=== PATIENT | male | born 1985 | race Caucasian/White ===

== ENCOUNTER → 2017-02-12 | Outpatient (REF) | payer OTHER | LOC: M SMT 13:46 | PROVIDERS: ATTEND Urology | DX: Z30.2 Encounter for sterilization (principal) ==

== ENCOUNTER → 2017-04-11 | Outpatient (REF) | payer OTHER ==
[2017-04-11 20:24] LABS: IMMMOTILE SPERM CENTRIFUGED PRESENT (ABSENT); IMMOTILE SPERM PRESENT (ABSENT); MOTILE SPERM PRESENT (ABSENT); MOTILE SPERM CENTRIFUGED PRESENT (ABSENT)
== END ==
LOC: M SMT 10:02
PROVIDERS: ATTEND Urology
DX: Z30.2 Encounter for sterilization (principal)

== ENCOUNTER → 2017-06-13 | Outpatient (REF) | payer OTHER ==
[2017-06-13 12:15] LABS: SEMEN APPEARANCE OPAQUE (OPAQUE); SEMEN VOLUME 0.9 ml (4.0-5.0)
[2017-06-13 12:16] LABS: SEMEN VISCOSITY VISCOUS (LIQUID); SEMEN pH 7.5 (7.0-8.0); SPERM ABNORMAL FORMS WBC'S NOTED; WBC CONCENTRATION >1 M/ml (<=1 M/ml)
[2017-06-13 12:17] LABS: IMMMOTILE SPERM CENTRIFUGED ABSENT (ABSENT); IMMOTILE SPERM ABSENT (ABSENT); MOTILE SPERM ABSENT (ABSENT); MOTILE SPERM CENTRIFUGED ABSENT (ABSENT)
== END ==
LOC: M SMT 10:58
DX: Z98.52 Vasectomy status (principal)

== ENCOUNTER 2018-01-06 02:20 | Emergency (ER) | payer BC, OTHER ==
[2018-01-06] MEDS: TAMSULOSIN 0.4 MG CAP PO (03:45)
[2018-01-06] MEDS: MORPHINE 4 MG/ML 1ML VIAL/SYRINGE (J2270) IV (03:45)
[2018-01-06] MEDS: NS 1,000 ML IV (03:45)
[2018-01-06] MEDS: KETOROLAC 30 MG/ML VIAL (J1885) IV (03:45)
[2018-01-06 04:28] LABS: ANION GAP 8 MEQ/L (8-16); BLOOD UREA NITROGEN 16 MG/DL (7-18); CALCIUM LEVEL 8.9 MG/DL (8.5-10.1); CARBON DIOXIDE LEVEL 26 MEQ/L (21-32); CHLORIDE LEVEL 110 MEQ/L (98-107); GLOMERULAR FILTRATION RATE 58.5 (>60); GLUCOSE, FASTING 113 MG/DL (70-100); POTASSIUM SERUM 4.1 MEQ/L (3.5-5.1); SODIUM LEVEL 144 MEQ/L (136-145)
[2018-01-06 05:54] LABS: APPEARANCE, URINE CLEAR (CLEAR); BACTERIA, URINE AUTO NEGATIVE (NEGATIVE); BILIRUBIN, URINE AUTO NEGATIVE (NEGATIVE); BLOOD, URINE BLOOD NEGATIVE (NEGATIVE); COLOR, URINE YELLOW (YELLOW); GLUCOSE, URINE (UA) AUTO NEGATIVE (NEGATIVE); KETONE, URINE AUTO TRACE mg/dL (NEGATIVE); LEUKOCYTE ESTERASE, URINE AUTO NEGATIVE (NEGATIVE); MUCUS, URINE SMALL (NEGATIVE); NITRITE, URINE AUTO NEGATIVE (NEGATIVE); PROTEIN, URINE AUTO NEGATIVE (NEGATIVE); RBC, URINE AUTO 3 /HPF (0-3); SQUAMOUS EPITHELIAL CELL UR AU 0 /HPF (0-6); UROBILINOGEN, URINE AUTO 0.2 mg/dL (0.0-2.0); WBC, URINE AUTO 1 /HPF (0-3)
== END 2018-01-06 06:13 | disposition home or self-care (01) ==
LOC: M ED 02:20
DX: N20.1 Calculus of ureter (principal); J45.909 Unspecified asthma, uncomplicated
CPT/HCPCS: J2270

== ENCOUNTER → 2018-04-07 | Outpatient (CLI) | payer BC, OTHER | LOC: M WUC 09:13 | DX: R05 Cough (principal) | CPT/HCPCS: 71046 ==

== ENCOUNTER → 2018-06-16 | Outpatient (REF) | payer OTHER ==
[~2018-06-16] MED LIST: MONT10TA2; MULTCAP PO; ZYRTTAB8 PO
[2018-06-16 10:59] LABS: HEMATOCRIT 48.2 % (42.0-52.0); HEMOGLOBIN 16.2 g/dl (13.5-17.5); MEAN CORPUSCULAR HGB CONC 33.6 g/dl (32.0-36.5); MEAN CORPUSCULAR VOLUME 86.2 fl (80.0-96.0); PLATELET COUNT, AUTOMATED 266 10^3/uL (150-450); RED BLOOD COUNT 5.59 10^6/uL (4.30-6.10)
[2018-06-16 11:04] LABS: ALT/SGPT 36 U/L (12-78); BILIRUBIN,TOTAL 0.6 MG/DL (0.2-1.0); BLOOD UREA NITROGEN 18 MG/DL (7-18); CALCIUM LEVEL 9.1 MG/DL (8.5-10.1); CARBON DIOXIDE LEVEL 28 MEQ/L (21-32); CHLORIDE LEVEL 104 MEQ/L (98-107); CHOLESTEROL LEVEL 167 MG/DL (<200); CHOLESTEROL RISK RATIO 4.638 (<5); CREATININE FOR GFR 0.96 MG/DL (0.70-1.30); GLOMERULAR FILTRATION RATE > 60.0 (>60); GLUCOSE, FASTING 85 MG/DL (70-100); HDL CHOLESTEROL 36 MG/DL (>40); LDL CHOLESTEROL 104 MG/DL (<100); NON-HDL-C 131 MG/DL; POTASSIUM SERUM 4.1 MEQ/L (3.5-5.1); SODIUM LEVEL 140 MEQ/L (136-145); TOTAL PROTEIN 6.8 GM/DL (6.4-8.2); TRIGLYCERIDES LEVEL 133 MG/DL (<150)
== END ==
LOC: M SFHCPLAZ 07:46
PROVIDERS: ATTEND Nurse Practitioner Family
DX: Z00.00 Encounter for general adult medical examination without abnormal findings (principal); Z13.220 Encounter for screening for lipoid disorders

== ENCOUNTER 2018-10-06 21:58 | Emergency (ER) | payer BC, OTHER ==
[~2018-10-06] VITALS: Ht 172.7 cm; Wt 102.3 kg
[2018-10-06] MEDS ORDERED: CIPR-249 PO (23:54)
[2018-10-07] MEDS ORDERED: CIPROFLOXACIN 500 MG TAB PO ONE
[2018-10-07 00:01] VITALS: BP 138/82
== END 2018-10-07 00:02 | disposition home or self-care (01) ==
LOC: M ED 21:58
DX: R39.15 Urgency of urination (principal)

== ENCOUNTER → 2018-10-09 | Outpatient (REF) | payer OTHER ==
[~2018-10-09] MED LIST changes: +CIPR-249 PO
== END ==
LOC: M SFHCPLAZ 17:06
PROVIDERS: ATTEND Nurse Practitioner Family
DX: R39.15 Urgency of urination (principal)

== ENCOUNTER → 2018-10-14 | Outpatient (CLI) | payer BC, OTHER ==
--- NOTE | 2018-10-14 14:26 | REP ---
RENAL AND BLADDER ULTRASOUND: Real-time sonographic evaluation of the kidneys performed and demonstrates both kidneys to be normal in size and echotexture, right kidney measuring 11.0 x 5.9 x 5.2 cm and left kidney 10.6 x 5.6 x 5.6 cm. There is no hydronephrosis bilaterally. No definite renal stone is seen. No renal mass is seen. Urinary bladder is mildly distended measuring 3.5 x 5.2 x 3.1 cm for a total volume of 37 mL. Postvoid residual is approximately 8 mL about 22% of the original volume. No bladder mass or calculus is seen. IMPRESSION: No hydronephrosis. No definite renal or bladder calculus. Electronically Signed by Slava Carmona MD 10/15/2018 12:26 P
== END ==
LOC: M RAD 07:08
PROVIDERS: ATTEND Nurse Practitioner Family
DX: R39.15 Urgency of urination (principal)

== ENCOUNTER 2019-01-30 18:33 | Emergency (ER) | payer BC, OTHER ==
[~2019-01-30] VITALS: Ht 172.7 cm; Wt 109.3 kg
[2019-01-30 18:34] VITALS: BP 153/98
[2019-01-30 19:13] LABS: BASO # 0.1 10^3/uL (0.0-0.2); BASO % 0.7 % (0.0-1.0); EOS # 0.3 10^3/uL (0.0-0.5); EOS % 2.8 % (0.0-3.0); HEMATOCRIT 46.4 % (42.0-52.0); HEMOGLOBIN 15.8 g/dl (13.5-17.5); LYMPH # 2.1 10^3/uL (1.5-5.0); LYMPH % 23.9 % (24.0-44.0); MEAN CORPUSCULAR HEMOGLOBIN 30.4 pg (27.0-33.0); MEAN CORPUSCULAR HGB CONC 34.1 g/dl (32.0-36.5); MEAN CORPUSCULAR VOLUME 89.2 fl (80.0-96.0); MONO # 0.7 10^3/uL (0.0-0.8); MONO % 7.4 % (0.0-5.0); NEUTROPHILS # 5.8 10^3/uL (1.5-8.5); NEUTROPHILS % 64.8 % (36.0-66.0); PLATELET COUNT, AUTOMATED 263 10^3/uL (150-450); WHITE BLOOD COUNT 8.9 10^3/uL (4.0-10.0)
[2019-01-30] MEDS ORDERED: KETOROLAC 30 MG/ML VIAL (J1885) IV ONE (19:30)
[2019-01-30 19:42] LABS: ALBUMIN 3.8 GM/DL (3.2-5.2); ALT/SGPT 32 U/L (12-78); BILIRUBIN,DIRECT < 0.1 MG/DL (0.0-0.2); BILIRUBIN,TOTAL 0.4 MG/DL (0.2-1.0); BLOOD UREA NITROGEN 15 MG/DL (7-18); CALCIUM LEVEL 8.9 MG/DL (8.5-10.1); CARBON DIOXIDE LEVEL 28 MEQ/L (21-32); CHLORIDE LEVEL 108 MEQ/L (98-107); CREATININE FOR GFR 1.21 MG/DL (0.70-1.30); GLOMERULAR FILTRATION RATE > 60.0 (>60); GLUCOSE, FASTING 87 MG/DL (70-100); LIPASE 109 U/L (73-393); POTASSIUM SERUM 3.9 MEQ/L (3.5-5.1); SODIUM LEVEL 143 MEQ/L (136-145); TOTAL PROTEIN 6.7 GM/DL (6.4-8.2)
[2019-01-30] MEDS ORDERED: NS 1,000 ML IV ONE (20:00)
[2019-01-30] MEDS ORDERED: TAMSULOSIN 0.4 MG CAP PO ONE (20:00)
--- NOTE | 2019-01-30 20:55 | REPVR ---
EXAM: CT Abdomen and Pelvis Without Contrast EXAM DATE/TIME: 01/30/2019 8:03 PM CLINICAL HISTORY: 33 years old, male; Abdominal pain; Flank; Left; Additional info: L flank pain, HX stones TECHNIQUE: Imaging protocol: Computed tomography of the abdomen and pelvis without contrast. Radiation optimization: All CT scans at this facility use at least one of these dose optimization techniques: automated exposure control; mA and/or kV adjustment per patient size (includes targeted exams where dose is matched to clinical indication); or iterative reconstruction. COMPARISON: CT ABD PELVIS W/O CONTRAST 01/06/2018 3:41 AM FINDINGS: Liver: Normal. No mass. Gallbladder and bile ducts: Normal. No calcified stones. No ductal dilation. Pancreas: Normal. No ductal dilation. Spleen: Normal. No splenomegaly. Adrenals: Normal. No mass. Kidneys and ureters: Multiple bilateral non obstructing renal calculi are demonstrated measuring up to 5 mm in the left kidney. There is a 3 mm. obstructive ureteral calculus located at the left UV junction resulting in mild proximal hydroureteronephrosis. There is minimal perinephric stranding. No urinoma demonstrated. Stomach and bowel: Mild diverticulosis is present in the distal colon. No diverticulitis. Mural stratification in the left colon likely related to incomplete distention. Appendix: No evidence of appendicitis. Intraperitoneal space: Unremarkable. No free air. No significant fluid collection. Vasculature: Unremarkable. No abdominal aortic aneurysm. Lymph nodes: Unremarkable. No enlarged lymph nodes. Bladder: Unremarkable as visualized. Reproductive: The prostate gland demonstrates mild hyperplasia. Bones/joints: Mild central spinal stenosis L3-4, moderate to severe central spinal stenosis L4-5. Soft tissues: Unremarkable. IMPRESSION: 1. Multiple bilateral non obstructing renal calculi are demonstrated measuring up to 5 mm in the left kidney. 2. There is a 3 mm. obstructive ureteral calculus located at the left UV junction resulting in mild proximal hydroureteronephrosis. 3. Mild prostatic hyperplasia. 4. Mild diverticulosis is present in the distal colon. No diverticulitis. Electronically signed by: Priyank Valdovinos On 01/30/2019 20:54:50 PM
[2019-01-30] MEDS ORDERED: FLOM0.4C39 PO (21:13)
[2019-01-30] MEDS ORDERED: KETO10TAB PO (21:13)
[2019-01-30] MEDS ORDERED: KETOROLAC TROMETHAMINE 10 MG TAB PO ONE (21:30)
[2019-02-17] MEDS ORDERED: FIBE625T PO (08:44)
[2019-02-17] MEDS ORDERED: SING10TA32 PO (08:44)
== END 2019-01-30 21:38 | disposition home or self-care (01) ==
LOC: M ED 18:33
DX: N20.1 Calculus of ureter (principal); Z87.442 Personal history of urinary calculi
CPT/HCPCS: 74176; 80048; 80076; 81001; 83690; 85025; 96361; 96374; 99284; J1885

== ENCOUNTER → 2019-02-03 | Outpatient (REF) | payer OTHER ==
[~2019-02-03] MED LIST changes: +FLOM0.4C39 PO; +KETO10TAB PO
[2019-02-11 00:07] LABS: Ca Ox Monohydrate 82 % (.)
== END ==
LOC: M SMT 13:16
PROVIDERS: ATTEND Nurse Practitioner Family
DX: N20.0 Calculus of kidney (principal)

== ENCOUNTER → 2019-02-04 | Outpatient (CLI) | payer BC, OTHER ==
--- NOTE | 2019-02-04 17:08 | REP ---
Supine abdomen, two views Indication: Kidney stone. Comparison: CT abdomen pelvis of 01/30/2019. Findings: There is a similar 3 mm calculus within the lower pole left kidney. No right renal calculus is identified. No urinary bladder or ureteral calculus is identified. No calcification to correspond to previously described on left UVJ obstructing calculus, presumably passed. Overlying bowel gas within normal limits. Osseous structures are intact. Impression: No calcification to correspond to previously described on left UVJ obstructing calculus, presumably passed. Similar 3 mm calculus within the left renal lower pole. No new calculus identified. Electronically Signed by Karen Swan MD 02/04/2019 04:59 P
== END ==
LOC: M LRY 15:28
PROVIDERS: ATTEND Nurse Practitioner Family
DX: N20.0 Calculus of kidney (principal)

== ENCOUNTER 2019-02-18 06:22 | Day surgery (SDC) | payer BC, OTHER ==
[~2019-02-18] VITALS: Ht 172.7 cm; Wt 105.7 kg
[~2019-02-18 06:22] MED LIST changes: +FIBE625T PO; +LIDOCAINE 1% MDV 20ML VIAL SQ PRN; +LR 1,000 ML IV ONE; +SING10TA32 PO; +ceFAZolin SOD 2 GM in IV 1 EA IV ONE
--- NOTE | 2019-02-18 07:00 | REP ---
Clinical: Nephrolithiasis. Technique: Single supine view of the abdomen and pelvis. Comparison: 02/04/2019 Findings: Left lower pole renal calculus measures approximately 3 mm. Small punctate bilateral intrarenal calculi also identified. Visualized bowel gas pattern is nonspecific. Skeletal structures are intact. Impression: Small intrarenal calculi as noted above similar to prior examination. Electronically Signed by Gary Judge MD 02/18/2019 06:50 A
[2019-02-18] MEDS ORDERED: LIDOCAINE 2% INJ 100 MG/5 ML SDV (FOR ANES.) As Ordered ONE (07:02)
[2019-02-18] MEDS ORDERED: propofoL 200 MG/20 ML VIAL As Ordered ONE (07:02)
[2019-02-18] MEDS ORDERED: ONDANSETRON 4MG/2ML VIAL (J2405) As Ordered ONE (07:30)
[2019-02-18] MEDS ORDERED: MIDAZOLAM INJ 2 MG/2 ML VIAL (J2250) As Ordered ONE (07:30)
[2019-02-18] MEDS ORDERED: dexameTHASONE 4 MG/ML 1ML VIAL (J1100) As Ordered ONE (07:30)
[2019-02-18] MEDS ORDERED: fentaNYL 100 MCG/2 ML INJECTION (J3010) As Ordered ONE (07:31)
[2019-02-18] MEDS ORDERED: PERCOCET 5MG/325MG TAB PO PRN (09:30)
[2019-02-18] MEDS ORDERED: LR 1,000 ML IV SCH (09:30)
[2019-02-18] MEDS ORDERED: ONDANSETRON 4MG/2ML VIAL (J2405) IV PRN (09:30)
[2019-02-18 09:40] VITALS: BP 119/73
--- NOTE | 2019-02-18 14:59 | RO ---
DATE OF PROCEDURE: 02/18/2019 PREOPERATIVE DIAGNOSIS: 4-5 mm nonobstructing left renal calculi. POSTOPERATIVE DIAGNOSIS: 4-5 mm nonobstructing left renal calculi. PROCEDURE: Left extracorporeal shock wave lithotripsy (ESWL). SURGEON: Dr. Soledad Junior THAI MASSEUR: ANESTHESIA: Monitored anesthesia care (MAC). FINDINGS: Nice breakup of the stone intraoperatively INDICATIONS FOR PROCEDURE: The patient is a 33-year-old gentleman who came to the emergency room 01/30/2019 with a 3 mm stone at the left ureteropelvic junction (UPJ), which he was able to pass but this was quite painful for him. His CAT scan still showed a 4-5 mm nonobstructing left renal stone, which was well seen on a KUB, and he decided to go ahead with left ESWL. All different options, alternatives and benefits were discussed, and informed consent was obtained in both verbal and written form. DESCRIPTION OF PROCEDURE: The patient came into the operating room and anesthesia was induced. Next, using fluoroscopy the stone was well visualized and then he received a total of 2500 shock waves with a total power level of 20. The patient tolerated the procedure well and was returned to the recovery room in stable condition.
== END 2019-02-18 10:30 | disposition home or self-care (01) ==
LOC: M SDC 06:22
PROVIDERS: ATTEND Specialist
DX: N20.0 Calculus of kidney (principal); F43.10 Post-traumatic stress disorder, unspecified; Z79.899 Other long term (current) drug therapy
CPT/HCPCS: 50590; 74018; J0690; J1100; J2250; J2405; J3010

== ENCOUNTER → 2019-04-01 | Outpatient (CLI) | payer BC, OTHER ==
[~2019-04-01] MED LIST changes: -LIDOCAINE 1% MDV 20ML VIAL SQ PRN; -LR 1,000 ML IV ONE; -ceFAZolin SOD 2 GM in IV 1 EA IV ONE
--- NOTE | 2019-04-01 22:01 | REP ---
Clinical: Kidney stone. Technique: Two supine views of the abdomen and pelvis. Findings: Evaluation is somewhat limited due to overlying fecal material/bowel gas pattern. Punctate 2 mm calculi in the lower pole left kidney again noted. No obvious right renal calcification. No obvious ureteral or bladder calcifications. Impression: Limited examination with suspected few punctate calculi in the lower pole left kidney. Electronically Signed by Gary Judge MD 04/01/2019 09:53 P
== END ==
LOC: M WUC 09:06
PROVIDERS: ATTEND Nurse Practitioner Family
DX: N20.0 Calculus of kidney (principal)

== ENCOUNTER 2019-07-15 07:04 | Day surgery (SDC) | payer BC, OTHER ==
[~2019-07-15] VITALS: Ht 170.2 cm; Wt 106.6 kg
[~2019-07-15 07:04] MED LIST changes: +ALL10TAB29 PO; -MONT10TA2; +MONT10TA4; +NS 1,000 ML IV ONE
[2019-07-15] MEDS ORDERED: LIDOCAINE 2% INJ 100 MG/5 ML SDV (FOR ANES.) As Ordered ONE (07:12)
[2019-07-15] MEDS ORDERED: propofoL 200 MG/20 ML VIAL As Ordered ONE ×3 (07:13→08:09)
--- NOTE | 2019-07-15 08:18 | ROOR ---
Patient Name: Gerry Webster Procedure Date: 07/15/2019 7:53 AM Date of : 1985 Age: 34 Room: [facility] Gender: Male Note Status: Finalized Procedure: Colonoscopy Indications: Hematochezia Providers: Saulo VAZQUEZ MD Referring MD: Ana Anne MD Requesting Provider: Medicines: Monitored Anesthesia Care Complications: No immediate complications. Procedure: Pre-Anesthesia Assessment: - The heart rate, respiratory rate, oxygen saturations, blood pressure, adequacy of pulmonary ventilation, and response to care were monitored throughout the procedure. The Colonoscope was introduced through the anus and advanced to 5 cm into the ileum. The colonoscopy was performed without difficulty. The patient tolerated the procedure well. The quality of the bowel preparation was good. Findings: The perianal and digital rectal examinations were normal. Pertinent negatives include normal sphincter tone, no palpable rectal lesions and no anal lesion or abnormality. Mild sigmoid diverticulosis and small internal hemorrhoids. The exam was otherwise without abnormality on direct and retroflexion views. Impression: The perianal exam and digital rectal examinations were normal. Pertinent negatives include normal sphincter tone, no palpable rectal lesions and no anal abnormality. - Mild sigmoid diverticulosis and small internal hemorrhoids. - The examination was otherwise normal on direct and retroflexion views. - No specimens collected. Recommendation: - Use fiber, for example Citrucel, Fibercon, Konsyl or Metamucil. Saulo Vazquez MD Sauol VAZQUEZ MD 07/15/2019 8:17:46 AM Electronically signed by Saulo VAZQUEZ MD Number of Addenda: 0 Note Initiated On: 07/15/2019 7:53 AM Estimated Blood Loss: Estimated blood loss: none.
[2019-07-15 08:30] VITALS: BP 129/82
== END 2019-07-15 08:40 | disposition home or self-care (01) ==
LOC: M OPP 07:04
PROVIDERS: ATTEND Internal Medicine Gastroenterology
DX: K57.30 Diverticulosis of large intestine without perforation or abscess without bleeding (principal); K64.8 Other hemorrhoids; K92.1 Melena

== ENCOUNTER → 2020-03-27 | Outpatient (CLI) | payer BC, OTHER ==
[~2020-03-27] MED LIST changes: -ALL10TAB29 PO; +CETI-24 PO; -NS 1,000 ML IV ONE
--- NOTE | 2020-03-27 12:25 | REP ---
INDICATION: KIDNEY STONE. COMPARISON: April 01, 2019. Comparison CT study January 30, 2019.. TECHNIQUE: Two supine views the abdomen are presented. FINDINGS: Bowel gas pattern is normal. Psoas margins and flank stripes are intact. No pathologic calcification is appreciated. IMPRESSION: No urinary tract calculus seen radiographically.. Negative KUB. <Electronically signed by Pete Darden > 03/27/20 [id number]
== END ==
LOC: M WUC 10:39
PROVIDERS: ATTEND Nurse Practitioner Women's Health
DX: N20.0 Calculus of kidney (principal)

== ENCOUNTER → 2020-06-12 | Outpatient (REF) | payer OTHER ==
[~2020-06-12] MED LIST changes: +MONT10TA10; -MONT10TA4
[2020-06-12 10:40] LABS: HEMATOCRIT 52.8 % (42.0-52.0); HEMOGLOBIN 17.1 g/dl (13.5-17.5); MEAN CORPUSCULAR HEMOGLOBIN 29.2 pg (27.0-33.0); MEAN CORPUSCULAR HGB CONC 32.4 g/dl (32.0-36.5); MEAN CORPUSCULAR VOLUME 90.3 fl (80.0-96.0); PLATELET COUNT, AUTOMATED 282 10^3/uL (150-450); RED BLOOD COUNT 5.85 10^6/uL (4.30-6.10); WHITE BLOOD COUNT 9.1 10^3/uL (4.0-10.0)
[2020-06-12 11:21] LABS: ALBUMIN 4.1 GM/DL (3.2-5.2); ALT/SGPT 40 U/L (12-78); BILIRUBIN,TOTAL 0.4 MG/DL (0.2-1.0); BLOOD UREA NITROGEN 17 MG/DL (7-18); CALCIUM LEVEL 9.5 MG/DL (8.5-10.1); CARBON DIOXIDE LEVEL 30 MEQ/L (21-32); CHLORIDE LEVEL 104 MEQ/L (98-107); CHOLESTEROL LEVEL 184 MG/DL (<200); CHOLESTEROL RISK RATIO 5.575 (<5); CREATININE FOR GFR 1.08 MG/DL (0.70-1.30); FREE T4 1.14 NG/DL (0.76-1.46); GLOMERULAR FILTRATION RATE > 60.0 (>60); GLUCOSE, FASTING 100 MG/DL (70-100); HDL CHOLESTEROL 33 MG/DL (>40); LDL CHOLESTEROL 106 MG/DL (<100); NON-HDL-C 151 MG/DL; POTASSIUM SERUM 4.4 MEQ/L (3.5-5.1); SODIUM LEVEL 140 MEQ/L (136-145); TRIGLYCERIDES LEVEL 224 MG/DL (<150)
== END ==
LOC: M SFHCPLAZ 08:58
PROVIDERS: ATTEND Physician Assistant
DX: K21.9 Gastro-esophageal reflux disease without esophagitis (principal); Z00.00 Encounter for general adult medical examination without abnormal findings; Z13.29 Encounter for screening for other suspected endocrine disorder; Z13.220 Encounter for screening for lipoid disorders

== ENCOUNTER 2021-03-19 23:55 | Emergency (ER) | payer OTHER ==
[~2021-03-19] VITALS: Ht 172.7 cm; Wt 115.0 kg
--- OUTSIDE RECORDS SUMMARY | 2021-03-20 00:04 | CCD ---
Author Author [facility] Organization [facility] Address Unknown Phone Unavailable Care Team Providers Care Awning Hanger Name Role Phone Bri Varghese Unavailable PROBLEMS Type Condition ICD9-CM Code [id number] Code Onset Dates Condition S tatus W/U Status Risk SNOMED Code Notes Problem Kidney stone N20.0 Active confirmed 9228180 7 Problem Gastroesophageal reflux disease without esophagitis K21.9 Active confirmed 882288171 Problem Vasectomy status Z98.52 Active confirmed 161 [id number] Problem Chronic sinusitis, unspecified location J32.9 Active confirmed 73624676 Problem BMI 34.0-34.9,adult Z68.34 Active confirmed 138323638 Problem Urinary urgency R39.15 Active confirmed 7501 8002 ALLERGIES Allergen (clinical drug ingredient) Drug/Non Drug Allergy do cumented on EMR Reaction Allergy Type Onset Date Status SEASONAL ALLERGIES NASAL, RUNNY NOSE, EYES Non Drug Allerg y Active ENCOUNTERS from 1987 to 2021-02-14 Encounter Location Date Provider Diagnosis [address] [phone] [place] [address] Jan, Bri Varghese IMMUNIZATIONS Vaccine Route Administration Date Status TDAP 0.5mL (Boostrix) IM Intramuscular October 15, 2017 Administe red Influenza 6mo & up Fluzone IM Intramuscular Jun 16, 2018 Admi nistered SOCIAL HISTORY Tobacco Use: Social History Observation Description Date Details (start date - stop date) Never Smoker Sex Assigned At : Social History Observation Description Sex Assigned At Unknown Education: Question Answer Notes Level of Education: College [employer] Question Answer Notes Total Score: 2 Interpretation: Alcohol Education 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 Yes with Women only Use protection? No Drug and Alcohol Question Answer Notes Total Score: 0 Interpretation: No problems reported Alcohol Screening: Question Answer Notes Did you have a drink containing alcohol in the past year? Ye s Points 3 Interpretation Negative How often did you have six or more drinks on one occas ion in the past year? Less than monthly (1 point) How many drinks did you have on a typica l day when you were drinking in the past year? 3 or 4 (1 point) How often did you have a drink containing alcohol in t he past year? Monthly or less (1 point) Tobacco Use: Question Answer Notes Are you a: never smoker REASON FOR REFERRAL No Information VITAL SIGNS No information MEDICATIONS Medication SIG (Take, Route, Frequency, Duration) Notes Start Da te End Date Status Singulair 10MG 1 tablet in the evening Orally Once a day for 30 days Active Ketoconazole 2 % 1 application to around anus Externally bid for 14 day(s) Dec, Not-Taking Fiber Not-Taking Cetirizine HCl 10MG TAKE ONE TABLET BY MOUTH ONC E DAILY Orally Once a day for 30 Days Active Probiotic - Orally Not-Taking Multi For Him 1 tab Orally Daily Act igor Proctofoam HC 1-1 % 1 application to affected ar ea Rectal Three times a day for 30 day(s) Dec, Not-Taking PROCEDURES No Information RESULTS No Results REASON FOR VISIT allergy meds MEDICAL (GENERAL) HISTORY Type Description Date Medical History Kidney stones Medical History Seasonal allergies Surgical History wisdom teeth extract Surgical History vasectomy 02/12/17 Surgical History colonoscopy 06/2019 Surgical History Lithotripsy 02/2019 Goals Section No Information Health Concerns No Information MEDICAL EQUIPMENT No Information MENTAL STATUS No Information FUNCTIONAL STATUS No Information ASSESSMENTS No Information PLAN OF TREATMENT Medication Medication Name Sig Start Date Stop Date Cetirizine HCl 10MG TAKE ONE TABLET BY MOUTH ONC E DAILY Orally Once a day for 30 Days Singulair 10MG 1 tablet in the evening Orally Once a day for 30 days Next Appt Details Provider Name:Aishwarya Garland, 3 10:45:00 AM, [id number], , [place], [address], Provider Name:Fiordaliza Mckee, 06-15 10:15:00 AM, [address] [facility], , [place], [address], Insurance Providers Payer Name Payer Address Payer Phone Insured Name Patient Relati onship to Insured Coverage Start Date Coverage End Date [facility] [address] [facility] [id number] JUAN RUIZ self
--- OUTSIDE RECORDS SUMMARY | 2021-03-20 00:04 | CCD ---
Author Author [facility] Organization [facility] Address Unknown Phone Unavailable Care Team Providers Care Bisque Grader Name Role Phone MICHELLE ASH Unavailable Unavailable Khadra SABA MD Unavailable Unavailable Khadra SABA MD Unavailable Unavailable Khadra SABA MD Unavailable Unavailable Khadra SABA MD Unavailable Unavailable Khadra SABA MD Unavailable Unavailable Khadra SABA MD Unavailable Unavailable Khadra SABA MD Unavailable Unavailable Khadra SABA MD Unavailable Unavailable Khadra SABA MD Unavailable Unavailable Khadra SABA MD Unavailable Unavailable Khadra SABA MD Unavailable Unavailable Khadra SABA MD Unavailable Unavailable Khadra SABA MD Unavailable Unavailable Khadra SABA MD Unavailable Unavailable Khadra SABA MD Unavailable Unavailable Khadra SABA MD Unavailable Unavailable Khadra SABA MD Unavailable Unavailable Khadra SABA MD Unavailable Unavailable Khadra SABA MD Unavailable Unavailable Khadra SABA MD Unavailable Unavailable Khadra SABA MD Unavailable Unavailable Khadra SABA MD Unavailable Unavailable Khadra SABA MD Unavailable Unavailable Khadra SABA MD Unavailable Unavailable Mariano BRADY PAUL Unavailable Unavailable Smallwood, P Derw PA Unavailable Unavailable Smallwood, P Drew PA Unavailable Unavailable [place]wood, P Drew PA Unavailable Unavailable [place]wood, P Drew PA Unavailable Unavailable Smallwood, P Drew PA Unavailable Unavailable Smallwood, P Drew PA Unavailable Unavailable Smallwood, P Drew PA Unavailable Unavailable Smallwood, P Drew PA Unavailable Unavailable Smallwood, P Drew PA Unavailable Unavailable Smallwood, P Drew PA Unavailable Unavailable Smallwood, P Drew PA Unavailable Unavailable Smallwood, P Drew PA Unavailable Unavailable Smallwood, P Drew PA Unavailable Unavailable Smallwood, P Drew PA Unavailable Unavailable Smlalwood, P Drew PA Unavailable Unavailable Smallwood, P Drew PA Unavailable Unavailable [place]wood, P Drew PA Unavailable Unavailable [place]wood, P Drew PA Unavailable Unavailable Smallwood, P Drew PA Unavailable Unavailable Smallwood, P Drew PA Unavailable Unavailable Smallwood, P Drew PA Unavailable Unavailable [place]wood, P Drew PA Unavailable Unavailable Smallwood, P Drew PA Unavailable Unavailable Smallwood, P Drew PA Unavailable Unavailable [place]wood, P Drew PA Unavailable Unavailable Smallwood, P Drew PA Unavailable Unavailable Smallwood, P Drew PA Unavailable Unavailable Smallwood, P Drew PA Unavailable Unavailable Smallwood, P Drew PA Unavailable Unavailable Smallwood, P Drew PA Unavailable Unavailable Smallwood, P Drew PA Unavailable Unavailable Smallwood, P Drew PA Unavailable Unavailable [place]wood, P Drew PA Unavailable Unavailable [place]wood, P Drew PA Unavailable Unavailable [place]wood, P Drew PA Unavailable Unavailable [place]wood, P Drew PA Unavailable Unavailable [place]wood, P Drew PA Unavailable Unavailable Smallwood, P Drew PA Unavailable Unavailable Smallwood, P Drew PA Unavailable Unavailable Smallwood, P Drew PA Unavailable Unavailable Smallwood, P Drew PA Unavailable Unavailable Smallwood, P Drew PA Unavailable Unavailable Scuderi, G Elton MONTERO Unavailable Unavailable Scuderi, G Elton MONTERO Unavailable Unavailable Scuderi, G Elton MONTERO Unavailable Unavailable Scuderi, G Elton MONTERO Unavailable Unavailable Scuderi, G Elton MONTERO Unavailable Unavailable Scuderi, G Elton MONTERO Unavailable Unavailable Scuderi, G Elton MONTERO Unavailable Unavailable Scuderi, G Elton MONTERO Unavailable Unavailable Scuderi, G Elton MONTERO Unavailable Unavailable Scuderi, G Elton MONTERO Unavailable Unavailable Scuderi, G Elton MONTERO Unavailable Unavailable Scuderi, G Elton MONTERO Unavailable Unavailable Scuderi, G Elton MONTERO Unavailable Unavailable Scuderi, G Elton MONTERO Unavailable Unavailable Scuderi, G Elton MONTERO Unavailable Unavailable Scuderi, G Elton MONTERO Unavailable Unavailable Scuderi, G Elton MONTERO Unavailable Unavailable Scuderi, G Elton MONTERO Unavailable Unavailable Scuderi, G Elton MONTERO Unavailable Unavailable Scuderi, G Elton MONTERO Unavailable Unavailable Scuderi, G Elton MONTERO Unavailable Unavailable Scuderi, G Elton MONTERO Unavailable Unavailable Scuderi, G Elton MONTERO Unavailable Unavailable Scuderi, G Elton MONTERO Unavailable Unavailable Scuderi, G Elton MONTERO Unavailable Unavailable Scuderi, G Elton MONTERO Unavailable Unavailable Scuderi, G Elton MONTERO Unavailable Unavailable Scuderi, G Elton MONTERO Unavailable Unavailable Scuderi, G Elton MONTERO Unavailable Unavailable Scuderi, G Elton MONTERO Unavailable Unavailable Scuderi, G Elton MONTERO Unavailable Unavailable Scuderi, Cyn Conde MD Unavailable Unavailable Scuderi, G Elton MONTERO Unavailable Unavailable Scuderi, G Elton MONTERO Unavailable Unavailable Scuderi, G Elton MONTERO Unavailable Unavailable Scuderi, G Elton MONTERO Unavailable Unavailable Scuderi, G Elton MONTERO Unavailable Unavailable Scuderi, G Elton MONTERO Unavailable Unavailable Scuderi, G Elton MONTERO Unavailable Unavailable Scuderi, G Elton MONTERO Unavailable Unavailable Scuderi, G Elton MONTERO Unavailable Unavailable Scuderi, Cyn Conde MD Unavailable Unavailable Scuderi, G Elton MONTERO Unavailable Unavailable Scuderi, Cyn Conde MD Unavailable Unavailable Scuderi, G Elton MONTERO Unavailable Unavailable Scuderi, G Elton MONTERO Unavailable Unavailable Scuderi, G Elton MONTERO Unavailable Unavailable Scuderi, G Elton MONTERO Unavailable Unavailable Scuderi, G Elton MONTERO Unavailable Unavailable Scuderi, G Elton MONTERO Unavailable Unavailable Scuderi, G Elton MONTERO Unavailable Unavailable Scuderi, G Elton MONTERO Unavailable Unavailable Scuderi, G Elton MONTERO Unavailable Unavailable Scuderi, G Elton MONTERO Unavailable Unavailable Scuderi, G Elton MONTERO Unavailable Unavailable Scuderi, G Elton MONTERO Unavailable Unavailable Scuderi, G Elton MONTERO Unavailable Unavailable Scuderi, G Elton MONTERO Unavailable Unavailable Scuderi, G Elton MONTERO Unavailable Unavailable Scuderi, G Elton MONTERO Unavailable Unavailable Scuderi, G Elton MONTERO Unavailable Unavailable Scuderi, G Elton MONTERO Unavailable Unavailable Scuderi, G Elton MONTERO Unavailable Unavailable Scuderi, G Elton MONTERO Unavailable Unavailable Scuderi, G Elton MONTERO Unavailable Unavailable Scuderi, G Eltno MONTERO Unavailable Unavailable Scuderi, G Elton MONTERO Unavailable Unavailable Scuderi, G Elton MONTERO Unavailable Unavailable Scuderi, G Elton MONTERO Unavailable Unavailable Scuderi, G Elton MONTERO Unavailable Unavailable Scuderi, G Elton MONTERO Unavailable Unavailable Scuderi, G Elton MONTERO Unavailable Unavailable Scuderi, G Elton MONTERO Unavailable Unavailable Scuderi, G Elton MONTERO Unavailable Unavailable Scuderi, G Elton MONTERO Unavailable Unavailable Jerrica MONTERO, P Paul Unavailable + Jerrica MONTERO, P Paul Unavailable Jerrica MONTERO, P Paul Unavailable Jerrica MONTERO, P Paul Unavailable + Jerrica MONTERO, P Paul Unavailable + Jerrica MONTERO, P Paul Unavailable + Jerrica MONTERO, P Paul Unavailable + Jerrica MONTERO, P Paul Unavailable + Jerrica MONTERO, P Paul Unavailable + Jerrica MONTERO, P Paul Unavailable + Jerrica MONTERO, P Paul Unavailable + Jerrica MONTERO, P Pual Unavailable + Jerrica MONTERO, P Paul Unavailable + Jerrica MONTERO, P Paul Unavailable + Jerrica MONTERO, P Paul Unavailable + Jerrica MONTERO, P Paul Unavailable + Jerrica MONTERO, P Paul Unavailable + Jerrica MONTERO, P Paul Unavailable + Jerrica MONTERO, P Paul Unavailable + Jerrica MONTERO, P Paul Unavailable + Jerrica MONTERO, P Paul Unavailable + Jerrica MONTERO, P Paul Unavailable + Jerrica MONTERO, P Paul Unavailable + Jerrica MONTERO, P Paul Unavailable + Jerrica MONTERO, P Paul Unavailable + Jerrica MONTERO, P Paul Unavailable + Jerrica MONTERO, P Paul Unavailable + Jerrica MONTERO, P Paul Unavailable + Jerrica MONTERO, P Paul Unavailable + Jerrica MONTERO, P Paul Unavailable + Jerrica MONTERO, P Paul Unavailable + Jerrica MONTERO, P Paul Unavailable + Jerrica MONTERO, P Paul Unavailable + Jerrica MONTERO, P Paul Unavailable + Jerrica MONTERO, P Paul Unavailable + Jerrica MONTERO, P Paul Unavailable + Jerrica MONTERO, P Paul Unavailable + Jerrica MONTERO, P Paul Unavailable + Jerrica MONTERO, P Paul Unavailable + Jerrica MONTERO, P Paul Unavailable + Jerrica MONTERO, P Paul Unavailable + Jerrica MONTERO, P Paul Unavailable + Jerrica MONTERO, P Paul Unavailable + Jerrica MONTERO, P Paul Unavailable + Jerrica MONTERO, P Paul Unavailable + Jerrica MONTERO, P Paul Unavailable + Jerrica MONTERO, P Paul Unavailable + Jerrica MONTERO, P Paul Unavailable + Jerrica MONTERO, P Paul Unavailable + Jerrica MONTERO, P Paul Unavailable + Jerrica MONTERO, P Paul Unavailable + Jerrica MONTERO, P Paul Unavailable + Jerrica MONTERO, P Paul Unavailable + Jerrica MONTERO, P Paul Unavailable + Jerrica MONTERO, P Paul Unavailable + Jerrica MONTERO, P Paul Unavailable + Jerrica MONTERO, P Paul Unavailable + Jerrica MONTERO, P Paul Unavailable + Jerrica MONTERO, P Paul Unavailable + Jerrica MONTERO, P Paul Unavailable + Jerrica MONTERO, P Paul Unavailable + Jerrica MONTERO, P Paul Unavailable + Jerrica MONTERO, P Paul Unavailable + Jerrica MONTERO, P Paul Unavailable + Jerrica MONTERO, P Paul Unavailable + Jerrica MONTERO, P Paul Unavailable Nilsa, Destonie Unavailable Nilsa, Destonie Unavailable RACHAEL GUERRA MD Unavailable Unavailable GUERRARACHAEL PEREZ MD Unavailable Unavailable GUERRARACHAEL MD Unavailable Unavailable GUERRA, RACHAEL MILLER MD Unavailable Unavailable GUERRA, RACHAEL MILLER MD Unavailable Unavailable GUERRA, RACHAEL MILLER MD Unavailable Unavailable GUERRA, RACHAEL MILLER MD Unavailable Unavailable GUERRA, RACHAEL MILLER MD Unavailable Unavailable GUERRA, RACHAEL MILLER MD Unavailable Unavailable GUERRA, RACHAEL MILLER MD Unavailable Unavailable GUERRA, RACHAEL MILLER MD Unavailable Unavailable GUERRA, RACHAEL MILLER MD Unavailable Unavailable GUERRA, RACHAEL MILLER MD Unavailable Unavailable GUERRA, RACHAEL MILLER MD Unavailable Unavailable GUERRA, RACHAEL MILLER MD Unavailable Unavailable GUERRA, RACHAEL MILLER MD Unavailable Unavailable GUERRA, RACHAEL MILLER MD Unavailable Unavailable GUERRA, RACHAEL MILLER MD Unavailable Unavailable GUERRA, RACHAEL MILLER MD Unavailable Unavailable GUERRA, RACHAEL MILLER MD Unavailable Unavailable GUERRA, RACHAEL MILLER MD Unavailable Unavailable GUERRA, RACHAEL MILLER MD Unavailable Unavailable GUERRA, RACHAEL MILLER MD Unavailable Unavailable GUERRA, RACHAEL MILLER MD Unavailable Unavailable GUERRA, RACHAEL MILLER MD Unavailable Unavailable GUERRA, RACHAEL MILLER MD Unavailable Unavailable GUERRA, RACHAEL MILLER MD Unavailable Unavailable GUERRA, RACHAEL MILLER MD Unavailable Unavailable GUERRA, RACHAEL MILLER MD Unavailable Unavailable GUERRA, RACHAEL MILLER MD Unavailable Unavailable GUERRA, RACHAEL MILLER MD Unavailable Unavailable GUERRA, RACHAEL MILLER MD Unavailable Unavailable GUERRA, RACHAEL MILLER MD Unavailable Unavailable INES, Ashley VASQUEZ MD Unavailable Unavailable CHACON, Ashley VASQUEZ MD Unavailable Unavailable CHACON, Ashley VASQUEZ MD Unavailable Unavailable CHACON, Ashley VASQUEZ MD Unavailable Unavailable CHACON, Ashley VASQUEZ MD Unavailable Unavailable CHACON, Ashley VASQUEZ MD Unavailable Unavailable CHACON, Ashley VASQUEZ MD Unavailable Unavailable CHACON, Ashley VASQUEZ MD Unavailable Unavailable CHACON, Ashley VASQUEZ MD Unavailable Unavailable CHACON, Ashley VASQUEZ MD Unavailable Unavailable CHACON, Ashley VASQUEZ MD Unavailable Unavailable CHACON, Ashley VASQUEZ MD Unavailable Unavailable CHACON, Ashley VASQUEZ MD Unavailable Unavailable CHACON, Ashley VASQUEZ MD Unavailable Unavailable CHACON, Ashley VASQUEZ MD Unavailable Unavailable CHACON, Ashley VASQUEZ MD Unavailable Unavailable CHACON, Ashley VASQUEZ MD Unavailable Unavailable CHACON, Ashley VASQUEZ MD Unavailable Unavailable CHACON, Ashley VASQUEZ MD Unavailable Unavailable CHACON, Ashley VASQUEZ MD Unavailable Unavailable CHACON, A CHRISTINA MD Unavailable Unavailable CHACON, A CHRISTINA MD Unavailable Unavailable CHACON, A CHRISTINA MD Unavailable Unavailable CHACON, A CHRISTINA MD Unavailable Unavailable CHACON, A CHRISTINA MD Unavailable Unavailable CHACON, A CHRISTINA MD Unavailable Unavailable CHACON, A CHRISTINA MD Unavailable Unavailable CHACON, A CHRISTINA MD Unavailable Unavailable CHACON, A CHRISTINA MD Unavailable Unavailable CHACON, A CHRISTINA MD Unavailable Unavailable CHACON, A HCRISTINA MD Unavailable Unavailable CHACON, A CHRISTINA MD Unavailable Unavailable CHACON, A CHRISTINA MD Unavailable Unavailable CHACON, A CHRISTINA MD Unavailable Unavailable CHACON, A CHRISTINA MD Unavailable Unavailable CHACON, A CHRISTINA MD Unavailable Unavailable CHACON, A CHRISTINA MD Unavailable Unavailable CHACON, A CHRISTINA MD Unavailable Unavailable CHACON, A CHRISTINA MD Unavailable Unavailable CHACON, A CHRISTINA MD Unavailable Unavailable CHACON, A CHRISTINA MD Unavailable Unavailable CHACON, A CHRISTINA MD Unavailable Unavailable CHACON, A CHRISTINA MD Unavailable Unavailable CHACON, A CHRISTINA MD Unavailable Unavailable CHACON, A CHRISTINA MD Unavailable Unavailable CHACON, A CHRISTINA MD Unavailable Unavailable CHACON, A CHRISTINA MD Unavailable Unavailable CHACON, A CHRISTINA MD Unavailable Unavailable CAHCON, A CHRISTINA MD Unavailable Unavailable CHACON, A CHRISTINA MD Unavailable Unavailable CHACON, A CHRISTINA MD Unavailable Unavailable CHACON, A CHRISTINA MD Unavailable Unavailable CHACON, A CHRISTINA MD Unavailable Unavailable CHACON, A CHRISTINA MD Unavailable Unavailable CHACON, A CHRISTINA MD Unavailable Unavailable CHACON, A CHRISTINA MD Unavailable Unavailable CHACON, A CHRISTINA MD Unavailable Unavailable CHACON, A CHRISTINA MD Unavailable Unavailable CHACON, A CHRISTINA MD Unavailable Unavailable CHACON, A CHRISTINA MD Unavailable Unavailable CHACON, A CHRISTINA MD Unavailable Unavailable CHACON, A CHRISTINA MD Unavailable Unavailable CHACON, A CHRISTINA MD Unavailable Unavailable CHACON, A CHRISTINA MD Unavailable Unavailable CHACON, A CHRISTINA MD Unavailable Unavailable CHACON, A CHRISTINA MD Unavailable Unavailable CHACON, A CHRISTINA MD Unavailable Unavailable CHACON, A CHRISTINA MD Unavailable Unavailable CHACON, A CHRISTINA MD Unavailable Unavailable CHACON, A CHRISTINA MD Unavailable Unavailable CHACON, A CHRISTINA MD Unavailable Unavailable CHACON, A CHRISTINA MD Unavailable Unavailable CHACON, A CHRISTINA MD Unavailable Unavailable CHACON, A CHRISTINA MD Unavailable Unavailable CHACON, A CHRISTINA MD Unavailable Unavailable CHACON, A CHRISTINA MD Unavailable Unavailable CHACON, A CHRISTINA MD Unavailable Unavailable CHACON, A CHRISTINA MD Unavailable Unavailable CHACON, A CHRISTINA MD Unavailable Unavailable CHACON, A CHRISTINA MD Unavailable Unavailable CHACON, A CHRISTINA MD Unavailable Unavailable CHACNO, A CHRISTINA MD Unavailable Unavailable CHACON, A CHRISTINA MD Unavailable Unavailable CHACON, A CHRISTINA MD Unavailable Unavailable CHACON, A CHRISTINA MD Unavailable Unavailable CHACON, A CHRISTINA MD Unavailable Unavailable CHACON, A CHRISTINA MD Unavailable Unavailable CHACON, A CHRISTINA MD Unavailable Unavailable CHACON, A CHRISTINA MD Unavailable Unavailable CHACON, A CHRISTINA MD Unavailable Unavailable CHACON, A CHRISTINA MD Unavailable Unavailable CHACON, A CHRISTINA MD Unavailable Unavailable Re-disclosure Warning The records that you are about to access may contain information from federally-assisted alcohol or drug abuse programs. If such information is present, then the following federally mandated warning applies: This information has been disclosed to you from records protected by federal confidentiality rules (42 CFR part 2). The federal rules prohibit you from making any further disclosure of this information unless further disclosure is expressly permitted by the written consent of the person to whom it pertains or as otherwise permitted by 42 CFR part 2. A general authorization for the release of medical or other information is NOT sufficient for this purpose. The Federal rules restrict any use of the information to criminally investigate or prosecute any alcohol or drug abuse patient.The records that you are about to access may contain highly sensitive health information, the redisclosure of which is protected by Article 27-F of the [place] [facility] law. If you continue you may have access to information: Regarding HIV / AIDS; Provided by facilities licensed or operated by the [place] [facility] Office of Mental Health; or Provided by the [facility] Office for People With Developmental Disabilities. If such information is present, then the following [facility] mandated warning applies: This information has been disclosed to you from confidential records which are protected by state law. State law prohibits you from making any further disclosure of this information without the specific written consent of the person to whom it pertains, or as otherwise permitted by law. Any unauthorized further disclosure in violation of state law may result in a fine or detention sentence or both. A general authorization for the release of medical or other information is NOT sufficient authorization for further disc losure. Allergies and Adverse Reactions Type Description Substance Reaction Status Data Source(s ) Environmental Allergy ENVIRONMENTAL ENVIRONMENTAL [facility] Family History Family Member Name Family Member Gender Family Member Status Date o f Status Description Data Source(s) Unknown Unknown Problem [facility] father Encounters Encounter Providers Location Date Indications Data Source(s ) Outpatient Attender: Elton Rush MD [id number] 03/07/2021 1 2:00:00 AM [facility] Outpatient Attender: Elton Rush MD 03/07/2021 12:00:0 0 AM [facility] Outpatient Attender: Roxishaina Nilsa 02/21/2021 09:05:00 AM [facility] Outpatient Attender: Michelle Nilsa 02/14/2021 09:02:00 AM [facility] Unknown [address] [facility] [address] 02/14/2021 12:00:00 AM EDT [facility] ([facility]) Outpatient Attender: PAUL BRADYAttender: Paul braun MD [id number] 02/12/2021 12:00:00 AM T - 2021 03:52:02 PM [facility] Outpatient Attender: Michelle Nilsa 02/06/2021 12:00:00 PM [facility] Outpatient Attender: Michelle Noriegamier 02/06/2021 08:49:00 AM [facility] Admission cancelled. Disregard status an d admitted date. Outpatient Attender: Elton Rush MDAttender: CHRISTINA BARRON MD [id number] 02/05/2021 12:00:00 AM [facility] Outpatient Referrer: CHRISTINA CHACON MD 02/05/2021 12 :00:00 AM EDT Pain in [facility] Pain in left knee Outpatient Attender: Michelle Nilsa 01/31/2021 08:19:00 AM [facility] Admission cancelled. Disregard status an d admitted date. Outpatient Attender: Roxishaina Nilsa 01/23/2021 04:59:00 PM [facility] Outpatient Referrer: Drew TONG 01/22/2021 12: 00:00 AM EDT [facility] Pain in left knee Outpatient Attender: Drew Lebronender: CHRISTINA ZHOU MD [id number] 01/22/2021 12:00:00 AM EDT - 01/30/2021 11:50:50 AM [facility] Outpatient Referrer: CHRISTINA CHACON MD 01/22/2021 12 :00:00 AM EDT Pain in left shoulder [facility] Pain in left shoulder Outpatient Attender: ELMIRA SABA MD 01/20 12:14:28 PM EDT - 01/20/2021 01:42:12 PM EDT [facility] ([facility] ) Outpatient Attender: PAUL GUERRA MD 12/22/2020 03:47:00 PM [facility] Outpatient Attender: Michelle Ash 11/13/2020 01:00:00 PM [facility] Outpatient Attender: Michelle Ash 10/16/2020 01:00:00 PM [facility] Outpatient Attender: Michelle NoriegamierAttender: MICHELLE LAZO 09/18/2020 11:51:00 AM [facility] Outpatient Attender: Michelle NoriegamierAttender: MICHELLE LAZO 08/07/2020 04:51:00 PM [facility] Outpatient Attender: Michelle NoriegamierAttender: MICHELLE LAZO 07/13/2020 12:31:00 PM [facility] Outpatient [address] [facility] [address] 06/12/2020 12:00:00 AM EST [facility] Outpatient Attender: Michelle NoriegamierAttender: MICHELLE LAZO 05/11/2020 01:00:00 PM [facility] Outpatient Attender: MICHELLE ASH 04/13/2020 04:49:00 PM [facility] Outpatient Attender: MICHELLE ASH 03/27/2020 01:00:00 PM [facility] Unknown [address] [facility] [address] 03/27/2020 12:00:00 AM EST [facility] [address] [facility] [address] 03/22/2020 12:00:00 AM EDT [facility]CW1 [facility] Outpatient LERAYDC 03/01/2020 03:20:01 PM EDT [facility] Unknown [address] [facility] [address] 03/01/2020 12:00:00 AM EDT eCW1 ([facility]) Outpatient Attender: MICHELLE ASH 12/21/2019 01:00:00 PM [facility] Outpatient Attender: MICHELLE ASH 11/17/2019 01:00:00 PM [facility] Outpatient Attender: MICHELLE ASH 11/15/2019 01:00:00 PM [facility] Outpatient Attender: MICHELLE ASH 10/19/2019 01:00:00 PM [facility] Outpatient Attender: MICHELLE ASH 08/31/2019 01:00:00 PM [facility] Medications Medication Brand Name Start Date Product Form Dose Route Admi nistrative Instructions Pharmacy Instructions Status Indications Reaction Description Data Source(s) montelukast 10 MG Oral Tablet Montelukast Sodium 10 MG Oral Tablet (SINGULAIR) Montelukast Sodium 10 MG Oral Tablet (SINGULAIR) 01/06/2021 12:00:00 AM EDT active TAKE 1 TABLET BY SUDHEER TH ONCE DAILY IN THE [facility] cetirizine hydrochloride 10 MG Oral Tabl et Cetirizine HCl 10 MG Oral Tablet (ZYRTEC) Cetirizine HCl 10 MG Oral Tablet (ZYRTEC) 01/06/2021 12:00:00 AM EDT 10 mg Oral active Take 10 mg by mouth [facility] Insurance Providers Payer name Policy type / Coverage type Policy ID Covered democrat ID Covered democrat's relationship to gaspar Policy Gaspar Plan Information [employer] [id number] S [id number] [employer] [id number] S [id number] [employer] 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 [id number] S [id number] [employer] [id number] [facility] [employer] [id number] S [id number] [facility] [employer] [id number] S [id number] [employer] [id number] [place] [employer] [place] [employer] [id number] Self [id number] [place] [employer] [place] [employer] [id number] Self [id number] [facility] [place] Commercial [id number] Self [id number] [employer] [id number] [facility] [id number] S [id number] [employer] [id number] [employer] COMM [id number] S [id number] [facility] [place] [employer] [id number] Self [id number] [facility] [place] [employer] [id number] Self [id number] [facility] [place] [employer] [id number] Self [facility] [employer] [id number] Self [employer] [place] P[place] 302/307 [id number] SP [id number] [employer] [place] PPO 302/307 [id number] SP [id number] [employer] [id number] MO2 [id number] [employer] [id number] MO2 [id number] [employer] [place] 304/804 [id number] SP [id number] [facility] [id number] [id number] [facility] [id number] SP [id number] [facility] [id number] S [id number] [facility] UNAVAILABLE S UNAVAILABLE [facility] [id number] S [id number] [employer] [place] [id number] S [id number] [facility] [id number] S [id number] [place] Plan P UNAVAILABLE S UNAVAI LABLE [facility] [id number] S [id number] [facility] [id number] SP [id number] [facility] O [id number] S [id number] [facility] [id number] SP [id number] [facility] [id number] SP [id number] [employer] [id number] [employer] [id number] Problems, Conditions, and Diagnoses Code Display Name Description Problem Type Effective Dates Data Source(s) F43.10 Post-traumatic stress disorder, unspecif ied POST-TRAUMATIC STRESS DISORDER, UNSPECIFIED Diagnosis 02/14/2021 09:02:00 AM [facility] pamela S83.412A Sprain of medial collateral ligament of left knee, initial encounter Sprain of medial collateral ligament of left knee, initial encounter Diagnosis 02/05/2021 07:39:14 AM [facility] M25.512 Pain in left shoulder Pain in left shoulder Diagnosis 01/22/2021 01:42:39 PM [facility] M25.562 Pain in left knee Pain in left knee Diagnosis 01/22 01:42:33 PM [facility] H68.101 Unspecified obstruction of Eustachian tu be, right ear UNSPECIFIED OBSTRUCTION OF EUSTACHIAN TUBE, RIGHT EAR Diagnosis 12/22/2020 03:47:0 0 PM [facility] F43.12 Post-traumatic stress disorder, chronic POST-TRAUMATIC STRESS DISORDER, CHRONIC Diagnosis 11/13/2020 01:00:[facility] Z[facility] Procedure and treatment not carried out because of patient's decision for other reasons PROC/TRTMT NOT CRD OUT BEC PT DECISION FOR OTH REASONS Diagn osis 09/18/2020 11:51:00 AM [facility] Surgeries/Procedures No Information Results ID Date Data Source [id number] 03/09/2021 06:49:36 AM [facility] Hospital Name Value Range Interpretation Code Description Data Jane rce(s) Supporting Document(s) Progress Note [facility] QLBNEb8mQbHZZdZa76/WYIabJEMco9QoOJxfEBv0TElzSHTnC5PhZHE6dR1oXTZ1GEhOVtAnUdSyWMF5 lbm [file] [id number]== ID Date Data Source [id number] 2021 06:48:14 AM EDT [facility] Name Value Range Interpretation Code Description Data Jane rce(s) Supporting Document(s) Progress Note [facility] OPWZLx5qNeVEYiWj02/ZJHadHEGqn7YlULbqCCd8FAttPWTcE1AeYOC9bM8pNDJ7HEnWDvKaKuTzVCK7 lbm [file] [id number]= ID Date Data Source [id number] 02/07/2021 08:21:26 AM EDT [facility] Name Value Range Interpretation Code Description Data Jane rce(s) Supporting Document(s) Progress Note [facility] AXDNKe8pEfTBWtTr46/YULzgZNEoe3DiYOxqBCj1DIciGJYdW2WfUKO8fG2mVQU9EPlEMhIjYpXfVTS0 lbm CoLuuCPmCnQZNkCwhBJzPsCTibAbdpxHNjMO3FaNH9BTBsF36xUHDsLGQzR3OtFEVvNhW+Oy4MXEOxiA LzBJ4RHzpM6F07a9xAKu24jV2TIcPyW2HNhvw9Sgt1F4knhAe14E3b/sBItKVUllRKSuL//ig+JM2E+a cbc9JLIhyU2lM1qhj4v63hc0vchi/+PmzWV1xYMh58 +jWItOrdqB/+wqebWR2rdn8AiCZdvEf9ssUQ1FvG/dcQY0iv9HwzAxrx2tj3cR4N25B0okLvx/6Di0ES u9qm2JFuvxpO0RAG2bjKJ9/ElNTAwdyvjv4vutl17vnkez6qm973wr2p/Cq+DpFJ3becWegppojVYrsT G21tcG6p15xM6h0LK9WDtC31Y50IUsGqxZaM7/1M4d YDVVnco4HZDFVhLj302ZZbZ9EkWXRKXqpRks/g6EJ/4fXrYEhWpyvLnOrQI7DppHbE2Bcr1zyHZryBFu Ae+1Kz3iAhVr+lIXUO6Nu5m8kCxNxKuj1r5z9J9Unwmo4cnJlvi7OGNDaukZvioSPclzZ54+ekz+KRoW B78rApKqlHcowz5uK9jPNiPacAgsk3cZFi5AeCtFG9 ywK0NXIOsxe2ZCiBoBtn+QJVv42jNv//kzk+5upHRuhSGvfDyp4Hzd+KpusWzZdF0/AS7u9RZ9hC8qdm /Jxz2GXvTn+rNx4ml9p5lN2uyNiGeL3IS9kPdTiLw71U3maLclVaaDv268EbzZMljsMPdYXsiw/wg30n 4wUPwZ1kD9bDrEHzIwRxbxp4oX0I22aV1xmioxQ66U RM6jg83zYeWXNjSrjHDeyiST+oUyWqv+SQdHTE25p1OVRIdeFMiHEtuwfYEEC2SssCBtsEktqXrXxayk z7Fsda50jefTFZG/BHqqvdct8I63wZwGTyH23tG/v/J3hn16XztWMumf/UqPme1wBPDQSOlaLm0Cm+SD 6q5+rro1s0ZJrW0OAjO+b2of8LyWHpt/JtYP6rd5EN lClyu8iw+DSQOyhrxSVt2VYEthaID7/ziDr5hH8zc9r7JcIiObxEuYiWuw8r2YZVz8DosnElxEUaDGC0 TeQA4wgq3ITe7uPn98PhZek3mH5to8N2oM91J3kuriMirX94e7IbXItkFpZM7jjgX4k86YLnfUBN+x6R nIoUQ0G5UWwObL/IGcp4htWP0RfqYNPoIi3oGh+RHp msnIS+Page/Eo/O0RDzCjt9n0cNMBuptMpiDu1ZOP6Oktex0xiexXd6LUCrEBQAoADoJreIKyjBo/n9n5 [file] ICAgICAgICAgICAgICAgICAgICAgICAgICAgICAgICAgICAgICAgICAgICAgICAgICAgICAgICAgICAg ICAgICAgICAgDQogICAgICAgICAgICAgICAgICAgIC AgICAgICAgICAgICAgICAgICAgICAgICAgICAgICAgICAgICAgICAgICAgICAgICAgICAgICAgICAgIC AgICAgICAgICAgICAgICAgICAgDQogICAgICAgICAgICAgICAgICAgICAgICAgICAgICAgICAgICAgIC AgICAgICAgICAgICAgICAgICAgICAgICAgICAgICAg ICAgICAgICAgICAgICAgICAgICAgICAgICAgICAgDQogICAgICAgICAgICAgICAgICAgICAgICAgICAg ICAgICAgICAgICAgICAgICAgICAgICAgICAgICAgICAgICAgICAgICAgICAgICAgICAgICAgICAgICAg ICAgICAgICAgICAgDQogICAgICAgICAgICAgICAgIC AgICAgICAgICAgICAgICAgICAgICAgICAgICAgICAgICAgICAgICAgICAgICAgICAgICAgICAgICAgIC AgICAgICAgICAgICAgICAgICAgICAgDQogICAgICAgICAgICAgICAgICAgICAgICAgICAgICAgICAgIC AgICAgICAgICAgICAgICAgICAgICAgICAgICAgICAg ICAgICAgICAgICAgICAgICAgICAgICAgICAgICAgICAgDQogICAgICAgICAgICAgICAgICAgICAgICAg ICAgICAgICAgICAgICAgICAgICAgICAgICAgICAgICAgICAgICAgICAgICAgICAgICAgICAgICAgICAg ICAgICAgICAgICAgICAgDQogICAgICAgICAgICAgIC AgICAgICAgICAgICAgICAgICAgICAgICAgICAgICAgICAgICAgICAgICAgICAgICAgICAgICAgICAgIC AgICAgICAgICAgICAgICAgICAgICAgICAgDQogICAgICAgICAgICAgICAgICAgICAgICAgICAgICAgIC AgICAgICAgICAgICAgICAgICAgICAgICAgICAgICAg ICAgICAgICAgICAgICAgICAgICAgICAgICAgICAgICAgICAgDQogICAgICAgICAgICAgICAgICAgICAg ICAgICAgICAgICAgICAgICAgICAgICAgICAgICAgICAgICAgICAgICAgICAgICAgICAgICAgICAgICAg NKWgUIOhHUVtSXYgSBFsMOKtUYm7Y7ilWUTdQXZyQC 0zHCf3Uh5+JOaOGrYcRCZ6wmBibJ9OCQ1nl7JdPIxoEYGph9FpUMv1ZO3XBLTzAYfjXN6NAAyjcs3RCW SyEPTlaIFSr3yaWnThSDG2LQPcQsomVV4GJPNwM1kpxqNoLLUjOONDGQqxHRNBUU4GDzLhD1RqoD37YM INCj4+KFggheQmEdiCBdI2CIHge3GrKCs3CU0RAXJj Wcjkb1NeNmgrLUFYLCenUP7YPES9EXY2LCZxYn2JNCUqW476poRdOG6GTq3GFzKsVJ5gkt5BJljgWWEm GbiRXze2ERstQC6WlEOvJIcGop3juuExrtCRx9CemtLqyNBCOC9iIRahUZ8lEZSiRFBwYT6cNh3kUGUn KPCsXqCuYGVNKQ4PKABcLEUlbJYzRHFeHFUOOG6ZEI xsXBZ5SYMovtHkaPZiFElsPE7TUUGoraKhNozuXWHIWHf+Hm8EHE4hy0WcVNlbIMSnRB7jps3NEUdRYk QoU0K4rCSyV3K7VWvqSh0FFVSzVFOeHbPlACXLSQsySC4MLL9wwmZ9NB4XzEQsGFHrHUOymDYqKTk3P7 3bnZMiKUdlCA7BIOK+Bernardo+Rz9LGNSeZMQgHEBhReNj MQRXKsZhS4ToL2PHf5DlR3RlXL99eBjtkyKiEWlyWA9MOZ6yXYIuOFEZFB3StSTyqI7gncUtDsMtWZGE GgBoZ83mcXVyBBUjTGZ2NOCnCm4FDERoL9HbleHldNkahcXvBKWzWJXKHD7VQAeeucRuqAZnxAqmNV52 tFldLX2FNh6KRkAjBE7fje1ZgXBuPt0RGUSpNA1FGX VuUUNdCUSiXWG3KNYnGlBwSPkcYQCfHINqZYH7SCThFQZtIP8KZmTsUEJvQwYhHKVjKXMnKLQkxz4VQZ TtYCEeNEalVuZiMDQmYIYzQEcoJUXeVOYvDNW6CVEmLOFjQM4DTnLiPIOzWYS1INaoVBLdPJEwgs6SGL WbLUKfRcrzMcUjCZCoSETdYOgoKSSrQCQ9ZPAzZLAh NOTiMN4EDeAsORUuCTM8PXtzLCCpORPqva5OKYRnSKZyBtI3QcPmFVJjHDWxMOojTTGuHPC4EdQhZPNe AKTwHA8CJpZcEYRuODy8DFIaLFEhOGJzrq9NEWEnGSPhIVpkMvKaYAIrWGUbJEryZNLcLBW1VZH8EAMt QAXmVZ9IUyLrRRKkRNgfYREeNOOwZUTibg0QZPZtFX AzIHM9WqGwACXaANKfDQagFUIaTBCkCCAaLSXbOSHkZU6CVcBbVQCcOdYvRtRlQKZuQWChzm4DDNKiCI PpRNCzIeElIGQmQYRzHAccSDQmCSKhGXT9RZCiCFEnIY9DKcNqAXPyBaC9BADyHMUlCZWsbf7GBWTgIL UtZoM2EePwPXArTVVnXYlbFMTgJEEkXGL3GQBkVZEr FP7AOkHlUFXpOjS5DKjtGHWoKMIbwt7CXTVkWDKiDbj8YoJzQAXwDPGlUTvfYEXnYFF8ZBL7NDVfUCYn LZ9FOiOnTNFmQjH0XRkpNZCoHVAssx0GWSDbUHLjUqS0AUJsSMByRGEpXMzmYCOdPTN9PHNpZWHoVGCe WB6FCfRfVRDdJzAdCVAhEDVgSFTnwd6VbPOcpPbpmd 7BJKkBDo4EuHtsZSPcSZrzOs4tgMGmPSYsZVKHDf6DizYlIQFpVUWVWFlzOZNrIFYuMsV0LKH2WxVyUX VbWLOvRKFuXhGwX1UbYXMpEzQ9OuE0XJEkKzBqItS1GAU2PxT9WpKwIzVtTeQ4KwStFtExYOO+IF0gDQ o+Ia9Co9PvbdI8kcPkLNmuNrY0BM2VJQYME1KAEp== ID Date Data Source [id number] 02/05/2021 10:21:21 AM EDT [facility] MR EXTREMITY LOWER JOINT WITHOUT CONTRAS T [id number] RESULTInterpreted by:Gary Abel Morrell WATSONJULIA KNEE INDICATION: 35-year-old male with left knee pain and mechanical clicking/popping. TECHNIQUE: MRI of the left knee was performed without contrast. COMPARISON: Knee radiograph dated 01/22/2021FINDINGS:MENISCIMedial meniscus: Intact.Lateral meniscus: There is a small vertical tear of the posterior horn of the lateral meniscus.LIGAMENTSCruciate ligaments: ACL and PCL are intact.Medial collateral ligament: Superficial and deep components intact. No periligamentous edema.Lateral collateral ligament: Intact.EXTENSOR MECHANISMThe distal quadriceps and patellar tendons are intact. The patella is normally positioned within the femoral groove. There is no retinacular disruption.FLUIDTiny joint effusion. No Adkins's cyst.OSSEOUS and ARTICULAR STRUCTURESBones: No fracture, stress reaction, or osseous lesion is seen.Patellofemoral compartment: No articular cartilage disease.Medial compartment: No articular cartilage disease.Lateral compartment: No articular cartilage disease.IMPRESSION:Small vertical tear of the posterior horn of the lateral meniscus.This document has been electronically signed by Gary Carrasco MD on 02/05/2021 10:19 AM Name Value Range Interpretation Code Description Data Jane rce(s) Supporting Document(s) ID Date Data Source [id number] 01/24/2021 05:49:34 AM EDT [facility] XR KNEE 4 OR MORE VIEWS [id number] RESUL TInterpreted by:PATRIA Collado KNEE AP STANDING BILATERAL KNEESCLINICAL STATEMENT: Pain. Initial encounter.TECHNIQUE: 3 views of the left knee. AP standing views of bilateral knees.COMPARISON: None.FINDINGS: No acute fracture or dislocation is identified. The visualized soft tissues are within normal limits.The joint spaces are preserved and the articular margins are smooth.IMPRESSION:Unremarkable examination.This document has been electronically signed by Gino Tejada MD on 01/24/2021 5:47 AM Name Value Range Interpretation Code Description Data Jane rce(s) Supporting Document(s) ID Date Data Source [id number] 01/22/2021 08:36:40 PM EDT [facility] XR SHOULDER COMPLETE [id number] RESULTIn terpreted by:PATRIA Collado SHOULDER CLINICAL STATEMENT: Pain. Initial encounter.TECHNIQUE: 4 views of the left shoulder. COMPARISON: None.FINDINGS: No acute fracture or dislocation is identified.The joint spaces are preserved and the articular margins are smooth.The visualized soft tissues are within normal limits.IMPRESSION:Unremarkable examination.This document has been electronically signed by Gino Tejada MD on 01/22/2021 8:34 PM Name Value Range Interpretation Code Description Data Jane rce(s) Supporting Document(s) ID Date Data Source [id number] 01/22/2021 02:55:20 PM T [facility] Name Value Range Interpretation Code Description Data Jane rce(s) Supporting Document(s) Progress Note [facility] BWNDCb3hVxJXHoCn55/DESlkHSJnz7OqLLexUZi6CRzrQFQmP0PdZPZ2nP5iAWQ6UJnZQzUlPtZkJGIb lbm [file] T2NOJ5Jar+HP2fUCa+Kw7Mm4FtsjL5jwUfGKu8VXC6DY9LKKKXH2BQAb== Procedure Social History Code Duration Value Status Description Data Source(s ) Alcohol intake 02/05/2021 12:00:00 AM EDT Not Asked completed [facility] Tobacco use and exposure 02/05/2021 12:00:00 AM EDT Never used co mpleted Never used [facility] Smoking 02/05/2021 12:00:00 AM EDT Never smoker completed Never s [facility] Smoking 06/12/2020 12:00:00 AM EST Never Smoker completed Never S moker eCW1 ([facility]) Smoking 06/12/2020 12:00:00 AM EST Never Smoker completed Never S moker eCW1 ([facility]) Smoking 03/27/2020 12:00:00 AM EST Never Smoker completed Never S moker eCW1 ([facility]) Smoking 03/27/2020 12:00:00 AM EST Never Smoker completed Never S moker eCW1 ([facility]) Vital Signs ID Date Data Source UNK Name Value Range Interpretation Code Description Data Source(s) Body temperature 97.5 [degF] 97.5 [degF] eCW1 ( [facility]) Systolic blood pressure 148 mm[Hg] 148 mm[Hg] e CW1 ([facility]) Diastolic blood pressure 86 mm[Hg] 86 mm[Hg] eCW1 ([facility]) Body weight 250 [lb_av] 250 [lb_av] eCW1 ([facility]) Body height [in_i] eCW1 ([facility]) Body mass index (BMI) [Ratio] 38.01 kg/m2 38.01 kg/m2 eCW1 ([facility]) Heart rate 97 /min 97 /min eCW1 ([facility]) Respiratory rate 18 /min 18 /min eCW1 ([facility]) Body weight 247 [lb_av] 247 [lb_av] eCW1 ([facility]) Body height [in_i] eCW1 ([facility]) Body mass index (BMI) [Ratio] 37.55 kg/m2 37.55 kg/m2 eCW1 ([facility]) Heart rate 98 /min 98 /min eCW1 ([facility]) Respiratory rate 18 /min 18 /min eCW1 ([facility]) Body temperature 96.7 [degF] 96.7 [degF] eCW1 ( [facility]) Systolic blood pressure 136 mm[Hg] 136 mm[Hg] e CW1 ([facility]) Diastolic blood pressure 88 mm[Hg] 88 mm[Hg] eCW1 ([facility]) Patient Treatment Plan of Care Planned Activity Planned Date Details Description Data Source (s) montelukast 10 MG Oral Tablet 01/06/2021 12:00:00 AM [facility] cetirizine hydrochloride 10 MG Oral Tablet 01/06/2021 12:00:00 AM [facility]
--- OUTSIDE RECORDS SUMMARY | 2021-03-20 00:04 | CCD | Summary of Care ---
Author Author [facility] Organization [facility] Address Unknown Phone Unavailable Care Team Providers Care Family Caseworker Name Role Phone Pending, Pcp PCP Unavailable Reason for Visit * Reason Comments Work Related Injury WC DOI: 01/18/2021 Left knee and shoulder injury Results MRI Scan Left Knee Results Encounter Details Care Team Description Date Type Department Elton Rush MD [address] [place] [address] [phone] Contusion of left knee, subsequent encou nter (Primary Dx) 02/05/2021 Office Visit [facility] , [facility] [address] [place] [id number] Allergies Comments Active Allergy Reactions Severity Noted Date Environmental Other (See 06/12/2020 Comments) documented as of this encounter (statuses as of 02/07/2021) Medications End Date Status Medication Sig Dispensed Refills Start Date Active Cetirizine HCl 10 MG Oral Take 10 mg by 0 12/24 Tablet (ZYRTEC) mouth daily 1 Active Montelukast Sodium 10 MG TAKE 1 TABLET 0 01/06 Oral Tablet (SINGULAIR) BY MOUTH ONCE 1 DAILY IN THE EVENING Active Multiple 1 tab 0 Vitamins-Minerals (MULTI FOR HIM 50+ PO) documented as of this encounter (statuses as of 02/07/2021) Active Problems No known active problemsdocumented as of this encounter (statuses as of 02/07/2021) Social History Date Tobacco Use Types Packs/Day Years Used Never Smoker Smokeless Tobacco: Never Used Comments Alcohol Use Standard Drinks/Week Occasionally Not Asked 1 (1 standard drink = 0.6 o z pure alcohol) Sex Assigned at Date Recorded Not on file Date Recorded COVID-19 Exposure Response 02/05/2021 7:38 AM EDT In the last month, have you been in contact with No / Unsure someone who was confirmed or suspected to have Coronavirus / COVID-19? documented as of this encounter Last Filed Vital Signs Not on filedocumented in this encounter Patient Instructions * Patient Instructions* Kendra Alexis LPN - 02/05/2021 11:00 AM EDT The patient is instructed to call the office with any question/concerns or if sy mptoms worsen. documented in this encounter Progress Notes * Skylar Wolfe - 02/05/2021 11:00 AM EDT Images from the original note were not included. Diagnosis: #1 Left knee contusion #2 Left shoulder strain CC: Left knee and left shoulder injury Date of Injury: 01/18/21 Work status: Not working Impairment: Mild-moderate History: Gerry Webster is a 35 y.o. patient who comes in today after being r eferred by Dr. Medina. 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 He had immediate sever pain in his left shoulder and left k nee. Patient landed directly on his anterior left knee, but also knocked his lef t shoulder on a counter as he fell. Patient states that the next day he was in s ever pain. His left knee has pain when weightbearing as well as locking and catc bernardo. He is able to weight-bear without ambulatory aid. He notes stiffness to hi s left shoulder. He had seen Dr. Medina initially after his injury, at that candace e an MRI left knee was ordered and brought in today. No neurological or constitu tional complaints. Past History: Please see Medical History Form - reviewed. History reviewed. No pertinent past medical history. Patient's currently listed allergies are: Seasonal [environmental] Physical exam: Patient is alert & oriented times three, in no significant distress. Mood is appropriate. Skin is intact and supple throughout. Sensation is intact to light touch throughout. Distal pulses are palpable. DTRs intact and symmetric. There were no vitals filed for this visit. Left knee: Skin intact. No effusion. Nontender. Good motion. Stable. Patella tracks straight. Negative provocative testing. Calf is soft and nontender. N eurovascularly intact. Glen's negative. Left shoulder: Skin is intact. No deformity. Nontender. Good motion. Good str ength. Stable. Negative provocative testing: Neer/Delgado. Neurovascularly int act. Mild AC joint tenderness. Radiographs: Left knee MRI 02/05/21- independently reviewed by myself Assessment/Plan: Reviewed natural history. Options have been discussed with the patient. Based off of fairly benign knee MR I findings, we will continue to monitor his symptoms. We recommended use of comp ression, aleve, ice, heat as needed. We discussed proceeding with a therapeutic injection in the future if his symptoms were to continue. As for his shoulder, we will also have him continue with conservative symptom ma nagement and observation as this has been improving since his original injury. Mariano cochran return to work in 2 weeks, 02/19/21. Follow up in one month. Restrictions are self imposed based on sense of well being and confidence. At the conclusion of the encounter, questions were answered to satisfaction. Th e treatment plan was reviewed, including prognosis. The patient [and family] we re comfortable with the plan. Brief addendum (attending physician) I have examined the patient and discussed relevant clinical findings. I agree w ith the above stated documentation. For details, please see above. Summary-as stated above. Left knee contusion with mild lateral compartment chondrosis baseline (pre-exist ing) with questionable meniscal pathology. No yann mechanical derangement. Rec ommend symptomatic treatment observation. Exercise caution with deep weighted s quats and lunging. Left shoulder strain with likely baseline tendinosis. No major functional deran gement. Recommend symptomatic treatment and observation and exercise caution wi th strenuous lifting, long arm lifting and prolonged overhead lifting. Patient elects return back to work 02/19/2021. Restrictions self-imposed based o n wellbeing. Prognosis is fair. Follow-up as needed. cc: Pcp Pending This document was dictated using [employer]. A reasonab le attempt at proof reading has been made to minimize errors. Please call our o ffice if you have any questions. Thank you. documented in this encounter Plan of Treatment Care Team Description Date Type Specialty Walter Becerril MD [address] [place] [address] [phone] 02/12/2021 Surgical Orthopedic Surgery Consult Health Maintenance Due Date Last Done Comments MMR Vaccines (1 of - 02/21/1988 Standard series) Varicella Vaccines (1 of 02/21/1988 2 - 2-dose childhood series) DTaP,Tdap,and Td Vaccines 1994 (1 - Tdap) HIV Screening 02/21/2000 Influenza Vaccine 02/23/2021 Pneumococcal Vaccine: 65+ 02/21/2052 Years (1 of 1 - PPSV23) HIB Vaccines Aged Out No longer eligible based on patient's age to complete this topic Hepatitis A Vaccines Aged Out No longer eligibl e based on patient's age to complete this topic Hepatitis B Vaccines Aged Out No longer eligibl e based on patient's age to complete this topic IPV Vaccines Aged Out No longer eligible based on patient's age to complete this topic Pneumococcal Vaccine: Aged Out No longer eligib le based on patient's age to Pediatrics (0 to 5 Years) complete this topic and At-Risk Patients (6 to 64 Years) documented as of this encounter Results Not on filedocumented in this encounter Visit Diagnoses Diagnosis Contusion of left knee, subsequent enco unter - Primary documented in this encounter
[2021-03-20] MEDS ORDERED: KETOROLAC 30 MG/ML 1ML VIAL IV ONE (01:30)
--- OUTSIDE RECORDS SUMMARY | 2021-03-20 01:48 | CCD ---
Author Author [facility] Organization [facility] Address Unknown Phone Unavailable Care Team Providers Care Communications Electrician Supervisor Name Role Phone MICHELLE ASH Unavailable Unavailable [...] Mariano BRADY PAUL Unavailable Unavailable Smallwood, P Drew PA Unavailable [...] Elton MONTERO Unavailable Unavailable Scuderi, G Elton MONETRO Unavailable Unavailable Scuderi, G Elton MONTERO Unavailable [...] Unavailable GUERRA, RACHAEL MILLER MD Unavailable Unavailable UGERRA, RACHAEL MILLER MD Unavailable Unavailable GUERRA, RACHAEL [...] Unavailable CHACON, A CHRISTINA MD Unavailable Unavailable CHAOCN, A CHRISTINA MD Unavailable Unavailable CHACON, A [...] is protected by Article 27-F of the [facility] Public Health law. If you continue you may have access to information: Regarding HIV / AIDS; Provided by facilities licensed or operated by the [facility] Office of Mental Health; or Provided by the [facility] Office for People With Developmental Disabilities. If such information is present, then the following [facility] mandated warning applies: This information has been [...] law may result in a fine or retirement sentence or both. A general authorization for the release of medical or other information is NOT sufficient authorization for further disc losure. Allergies and Adverse Reactions Type Description Substance Reaction Status Data Source(s ) Environmental Allergy ENVIRONMENTAL ENVIRONMENTAL [facility] Family History Family Member Name Family Member Gender Family Member Status Date o f Status Description Data Source(s) Unknown Unknown Problem [facility] father Encounters Encounter Providers Location Date Indications Data Source(s ) Outpatient Attender: Elton Rush MD [id number] 03/07/2021 1 2:00:00 AM [facility] Outpatient Attender: Elton Rush MD 03/07/2021 12:00:0 0 AM [facility] Outpatient Attender: Roxishaina Nilsa 02/21/2021 09:05:00 AM [facility] Outpatient Attender: Michelle Nilsa 02/14/2021 09:02:00 AM [facility] Unknown [address] [facility] [address] [address] 02/14/2021 12:00:[address] [facility] Outpatient Attender: PAUL BRADYAttender: Paul braun MD A-XXBJORT 02/12/2021 12:00:00 AM T - 2021 03:52:02 PM [facility] Outpatient Attender: Michelle Nilsa 02/06/2021 12:00:00 PM [facility] Outpatient Attender: Michelle Noriegamier 02/06/2021 08:49:00 AM [facility] Admission cancelled. Disregard status an d admitted date. Outpatient Attender: Elton Rush MDAttender: CHRISTINA BARRON MD A-XXBJORT 02/05/2021 12:00:00 AM [facility] Outpatient Referrer: CHRISTINA CHACON MD 02/05/2021 12 :00:00 AM EDT Pain in [facility] Pain in left knee Outpatient Attender: Michelle Nilsa 01/31/2021 08:19:00 AM [facility] Admission cancelled. Disregard status an d admitted date. Outpatient Attender: Roxishaina Nilsa 01/23/2021 04:59:00 PM [facility] Outpatient Referrer: Drew TONG 01/22/2021 12: 00:00 AM EDT Pain in [facility] knee [facility] Pain in left knee Outpatient Attender: Drew Lebronender: CHRISTINA ZHOU MD A-XXBJORT 01/22/2021 12:00:00 AM EDT - 01/30/2021 11:50:50 AM [facility] Outpatient Referrer: CHRISTINA CHACON MD 01/22/2021 12 :00:00 AM EDT Pain in left shoulder [facility] Pain in left shoulder Outpatient Attender: ELMIRA SABA MD 01/20 12:14:28 PM EDT - 01/20/2021 01:42:12 PM EDT [facility] ([facility] ) Outpatient Attender: PAUL GUERRA MD 12/22/2020 03:47:00 PM [facility] Outpatient Attender: Michelle Ash 11/13/2020 01:00:00 PM [facility] Outpatient Attender: Michelle Ash 10/16/2020 01:00:00 PM [facility] Outpatient Attender: Michelle NoriegamierAttender: MICHELLE LAZO 09/18/2020 11:51:00 AM [facility] Outpatient Attender: Michelle NoriegamierAttender: MICHELLE LAZO 08/07/2020 04:51:00 PM [facility] Outpatient Attender: Michelle NoriegamierAttender: MICHELLE LAZO 07/13/2020 12:31:00 PM [facility] Outpatient [address] [facility] [address] 06/12/2020 12:00:00 AM EST eCW1 ([facility]) Outpatient Attender: Michelle NoriegamierAttender: MICHELLE LAZO 05/11/2020 01:00:00 PM [facility] Outpatient Attender: MICHELLE AHS 04/13/2020 04:49:00 PM [facility] Outpatient Attender: MICHELLE ASH 03/27/2020 01:00:00 PM [facility] Unknown [address] [facility] [address] 03/27/2020 12:00:00 AM EST eCW1 ([facility]) Outpatient [address] [facility] [address] 03/22/2020 12:00:00 AM EDT eCW1 ([facility]) Outpatient LERAYDC 03/01/2020 03:20:01 PM EDT [facility] Unknown [address] [facility] [address] 03/01/2020 12:00:00 AM EDT eCW1 ([facility]) Outpatient Attender: MICHELLE ASH 12/21/2019 01:00:00 PM [facility] Outpatient Attender: MICHELLE ASH 11/17/2019 01:00:00 PM [facility] Outpatient Attender: MICHELLE ASH 11/15/2019 01:00:00 PM [facility] Outpatient Attender: MICHELLE ASH 10/19/2019 01:00:00 PM [facility] Outpatient Attender: MICHELLE ASH 08/31/2019 01:00:00 PM [facility] Medications Medication Brand Name Start Date Product Form Dose Route Admi nistrative Instructions Pharmacy Instructions Status Indications Reaction Description Data Source(s) montelukast 10 MG Oral Tablet Montelukast Sodium 10 MG Oral Tablet (SINGULAIR) Montelukast Sodium 10 MG Oral Tablet (SINGULAIR) 01/06/2021 12:00:00 AM EDT active TAKE 1 TABLET BY SUDHEER TH ONCE DAILY IN THE [facility] cetirizine hydrochloride 10 MG Oral Tabl et Cetirizine HCl 10 MG Oral Tablet (ZYRTEC) Cetirizine HCl 10 MG Oral Tablet (ZYRTEC) 01/06/2021 12:00:00 AM EDT 10 mg Oral active Take 10 mg by mouth [facility] Insurance Providers Payer name Policy type / Coverage type Policy ID Covered libertarian ID Covered libertarian's relationship to gaspar Policy Gaspar Plan Information [employer] [id number] S [id number] [employer] [id number] S [id number] [employer] [id number] S [id number] [id number] S [id number] [facility] [id number] SP [id number] [facility] [id number] SP [id number] [employer] [place] [id number] SP [id number] [employer] [place] [place] DIV [id number] SP [id number] EMPIRE PLAN [facility] [id number] Self [id number] [facility] W [id number] Empl [id number] [facility] W [id number] [facility] [id number] Needs Workers Comp Information WorkComp Health Claim [id number] Employee [id number] Workers Comp Carrier I WorkComp Health Claim [id number] Emplo garvin [id number] [facility] W [id number] Empl [id number] ANSI-Commercial [id number] [employer] [place] DIV [id number] SP [id number] ANSI-Commercial [id number] [facility] [facility] [id number] S [id number] ANSI-Commercial [id number] [facility] [id number] S [id number] ANSI-Commercial [id number] [facility] [employer] [id number] S [id number] [facility] [employer] [id number] S [id number] ANSI-Commercial [id number] [place] [employer] [place] [employer] [id number] Self [id number] [place] [employer] [place] [employer] [id number] Self [id number] [facility] [place] Commercial [id number] Self [id number] [employer] [id number] [facility] [id number] S [id number] [employer] [id number] [employer] COMM [id number] S [id number] [facility] [place] [employer] [id number] Self [id number] [facility] [place] Commercial [id number] Self [id number] [facility] [place] Commercial [id number] Self [facility] Commercial [id number] Self [employer]BS [place] PPO 302/307 [id number] SP [id number] [employer] [place] PPO 302/307 [id number] SP [id number] [employer] [id number] MO2 [id number] [employer] [id number] MO2 [id number] BCBS [place] 304/804 [id number] SP [id number] [facility] [id number] 18 [id number] [facility] [id number] SP [id number] [facility] [employer] [id number] S [id number] [facility] UNAVAILABLE S UNAVAILABLE [facility] [id number] S [id number] BCBS EMPIRE [id number] S [id number] [facility] [id number] S [id number] [place] P UNAVAILABLE S UNAVAI LABLE [facility] [id number] S [id number] [facility] [id number] SP [id number] [facility] O [id number] S [id number] [facility] DIV [id number] SP [id number] [facility] DIV [id number] SP [id number] ANSI-Commercial [id number] ANSI-Commercial [id number] Problems, Conditions, and Diagnoses Code Display Name Description Problem Type Effective Dates Data Source(s) F43.10 Post-traumatic stress disorder, unspecif ied POST-TRAUMATIC STRESS DISORDER, UNSPECIFIED Diagnosis 02/14/2021 09:02:00 AM [facility] pamela S83.412A Sprain of medial collateral ligament of left knee, initial encounter Sprain of medial collateral ligament of left knee, initial encounter Diagnosis 02/05/2021 07:39:14 AM [facility] M25.512 Pain in left shoulder Pain in left shoulder Diagnosis 01/22/2021 01:42:39 PM [facility] M25.562 Pain in left knee Pain in left knee Diagnosis 01/22 01:42:33 PM [facility] H68.101 Unspecified obstruction of Eustachian tu be, right ear UNSPECIFIED OBSTRUCTION OF EUSTACHIAN TUBE, RIGHT EAR Diagnosis 12/22/2020 03:47:0 0 PM [facility] F43.12 Post-traumatic stress disorder, chronic POST-TRAUMATIC STRESS DISORDER, CHRONIC Diagnosis 11/13/2020 01:00:00 [facility] Z[facility].29 Procedure and treatment not carried out because of patient's decision for other reasons PROC/TRTMT NOT CRD OUT BEC PT DECISION FOR OTH REASONS Diagn osis 09/18/2020 11:51:00 AM [facility] Surgeries/Procedures No Information Results ID Date Data Source [id number] 03/09/2021 06:49:36 AM [facility] Hospital Name Value Range Interpretation Code Description Data Jane rce(s) Supporting Document(s) Progress Note [facility] IMENOz9yTnTVSiDo41/UOCiqRHCvp7NhWEntDLw9OMnoYAOsS4TsRGQ3kJ6fMYG5CPgTDrRuIeFzVTV3 lbm [file] [id number]== ID Date Data Source [id number] 2021 06:48:14 AM EDT [facility] Name Value Range Interpretation Code Description Data Jane rce(s) Supporting Document(s) Progress Note [facility] VLWZFb2eJkONObGn11/NLGkqKRBbv8XbBXroMSr9TOkgTDJcW9BfOIV2bW0aDMB1ZPxQApVkTaChDMZ3 lbm [file] OV8WWAg= ID Date Data Source [id number] 02/07/2021 08:21:26 AM EDT [facility] Name Value Range Interpretation Code Description Data Jane rce(s) Supporting Document(s) Progress Note [facility] QBHHZk8nQaKVYyLi70/FEXtpOUKbe1JcECdwHGf6EIaaBDRzX7HoHFO6gX9tFAW6XLlLJnOoXwEvCDW5 lbm EwKltFUzQoNFLwHfkGRnZsKKexZgzwbYXdID1CfES1JNJcZ18kDVBzJTBxJ5IiJIKdTwC+Wb4FKMDleN JsSI8ILlvP6N58i0pSJe63iN0YTcTdV6ZVufj2Apq5M0oroAg80S2l/sBItKVUllRKSuL//ig+JM2E+a ayi7AUOzlH3pR7qqi0p76by4xtts/+WgePJ2vLHh74 +jWItOrdqB/+qgajHL4jhd5BoGCzfDn9niDQ6FnO/nqXN2zb1DtaPlrw3kx3gO0Y40R4uuQlw/6Di0ES v8ax7UPmghoI0BIT1doRL2/FlAJKzjgqly5mbzy17dmuat1pp606zy2u/Cq+JdRN8sphKmuhjdjOCmnY J62siC0a96zE5b1UW4IPcO03V48CIwRqhEaX2/1M4d UCSVlwz4UPDGZuMp000SAmM7BoYCSOXazIeo/g6EJ/6rIfWBgHowjRxNeRW7WykWaM4Xdo2xuDTgzONw Ae+1Sl8nAcMi+qGSLS3Pg0y0uEyKtHth6i6p4F4Sxixq6lvXgsq2CYEAqexJhckVMjgqE36+ekz+KRoW J00hPsBdeAkwpp2lX5vUKpAxrCcmm7sWSp5VkXjMO7 vtV0ONPWdzr9STmGfQch+FBBb81zUi//kzk+5qfBMyzBMgnYqd3Wpe+KpusWzZdF0/VG8q6YW8aK2atd /Uqa0KZtLx+pSe3sa0l8dT5zwQrVdF2BM0oJdDzDn49W9pyJyrBtoQm758TyyFYpfmQKgZGjei/wg30n 9cXWtS1tN0sJuEDnZaCoamu4aV1L29dQ2zuznnU17G FG0jp29gDyMGCdFjbRVwibDG+oUyWqv+FPvYJQ11d9VOKRflFUjLSkqugMXZE6YykQMxxJqipPgQiytx d8Xftx48xtmYLSC/DWevwxcg9H61sPyWRrF15iS/v/S0ey06KezDOros/ChQhu0gVWCZPKtnPc6Bv+SD 6q5+wvr3g3BKuH8JJaZ+f2dc8TmGJet/XiSY0jb8DV vYvra6af+TDRIpibyAHt1XOZpbmEY4/vvRd9lK9tp1v8UmMzTrxKbRbHsp9u9BNLw4YwwiOitUQvKKG1 LbZN5mbf7AKk9dFs65HhVif5jU5kh5O9aA98K2ykmkIfsR56z2DvXWgdOnIV1xkqM3s65SNwdALI+x6R gFhRD7R0UWbZtU/EGyj5akFK4DkaLQOtPo6kMa+RHp msnIS+Page/Eo/U2IWpCpg8k1dKZTnowJegSe5UZI4Cgped5pknbNm1YCFdVIPFrPQsOkqIJcmSd/n9n5 [file] ICAgICAgICAgICAgICAgICAgICAgICAgICAgICAgICAgICAgICAgICAgICAgICAgICAgICAgICAgICAg ICAgICAgICAgDQogICAgICAgICAgICAgICAgICAgIC AgICAgICAgICAgICAgICAgICAgICAgICAgICAgICAgICAgICAgICAgICAgICAgICAgICAgICAgICAgIC AgICAgICAgICAgICAgICAgICAgDQogICAgICAgICAgICAgICAgICAgICAgICAgICAgICAgICAgICAgIC AgICAgICAgICAgICAgICAgICAgICAgICAgICAgICAg ICAgICAgICAgICAgICAgICAgICAgICAgICAgICAgDQogICAgICAgICAgICAgICAgICAgICAgICAgICAg ICAgICAgICAgICAgICAgICAgICAgICAgICAgICAgICAgICAgICAgICAgICAgICAgICAgICAgICAgICAg ICAgICAgICAgICAgDQogICAgICAgICAgICAgICAgIC AgICAgICAgICAgICAgICAgICAgICAgICAgICAgICAgICAgICAgICAgICAgICAgICAgICAgICAgICAgIC AgICAgICAgICAgICAgICAgICAgICAgDQogICAgICAgICAgICAgICAgICAgICAgICAgICAgICAgICAgIC AgICAgICAgICAgICAgICAgICAgICAgICAgICAgICAg ICAgICAgICAgICAgICAgICAgICAgICAgICAgICAgICAgDQogICAgICAgICAgICAgICAgICAgICAgICAg ICAgICAgICAgICAgICAgICAgICAgICAgICAgICAgICAgICAgICAgICAgICAgICAgICAgICAgICAgICAg ICAgICAgICAgICAgICAgDQogICAgICAgICAgICAgIC AgICAgICAgICAgICAgICAgICAgICAgICAgICAgICAgICAgICAgICAgICAgICAgICAgICAgICAgICAgIC AgICAgICAgICAgICAgICAgICAgICAgICAgDQogICAgICAgICAgICAgICAgICAgICAgICAgICAgICAgIC AgICAgICAgICAgICAgICAgICAgICAgICAgICAgICAg ICAgICAgICAgICAgICAgICAgICAgICAgICAgICAgICAgICAgDQogICAgICAgICAgICAgICAgICAgICAg ICAgICAgICAgICAgICAgICAgICAgICAgICAgICAgICAgICAgICAgICAgICAgICAgICAgICAgICAgICAg HVFsOHWiBDTxOSKiOKBhMGZyNUb1O9oqSPKcIQTaZG 5hBGi7Tz8+SBhMBhSoVDK1bbQenW0FNW7gw1QpMQbyMJQag0OrUPf8RL0FRCLdNUpjCP5CWOblyk5NLY TzXPUjcHFRk8utZwJoBUE4NEFlOtifDD4SRGVtN7jchuFtLNYmBOGLCBwkEXNGXI4FVrEcR1GbaJ51ZE INCj4+AGatltLkVlsYRdR0ZHDlu8UuWFl3PK5QMXFi Audtp4IgIpuuNVWNYTenIG0YDPB6GPX2SPGkSx3KHUUhQ021agMgCK3QBn2BDtAwGW3lwp5YZfjmUVHj OelRYta9TOioEX0BrNInJZhIex1qtuAsrfXDg7XeohVhgQTDVI1wPDrwIJ6sXRQpXVTiQJ1yKa1wGRMm IFMwIkFuTPPXTC1FPFJeCVYzvUOgCGIpFSBDVU7JHE pkESY4GREcoxTevZMyGCacOO3LGMSsmaNiJkotNJJQRZe+Eh9QFM9rz4KwVPwqMCUbQW8wrn3BXCxSGp OyP1S7iFNeU2X2HCpfEg8VPNDoAJQcGnFyVIMGYYqjIO4NCY1bzhX7SF8SeUNkBDJsKUPryMLtUDg1X0 9zlMPqDEjdBO5XEJH+Bernardo+Wg3XBOLiIRGdJEDtVaFk JSALUbLvP8ZlN2ERq0UuL0NbOT19uQemmzChWQxpGP9IPC9aZKQwWXTVYO4OzNHerE1rqjZiFpPiFLUB LqQdY56vcTXtXRLjLZV8IDCdPs8PVLOwY5YsvrPmhYvzetJsJVBvXXYBJD2GWFcnhxBlqXQszDjoKY36 wUzfRH7IBt6PUcIbHJ7eyd0LcSKpIn2JQGTuOS5UMN RlUJUpIEFcWWM2YVBcZlIoCFsyGUHiGDAjHOI9EYMbNBOvMT4NFpDbNSXiCgGbPZFoYBEsHCZdea2KSG EpRWToXTwsUwMxFHUcNMOwPDihHYLdRLJcVGP9UMIlCCKoZK3PTwWrSUIoPZK6ILajQZWyPIAtdx5ZTO TfCSUkDokrJvRtUQSvECHdAKzjNJDhPCA8IXUuDHFk RHHuES1KHzWsPCJcTQN3YXgnHLFeNZAals6UVLFjQITkZcE9NuWrSOTjURJnTPzkABGxTWB5TnXgBCYr ACMpSG4KTtMhZFExTHs3UPTiWJMyRNMzos8FBOPeXIPoCMtnHiQcEOJhUNHuZOyeGNZkOEQ8MYF6GZTt JKDaGA5RRsOjXWSzPRrqPMHzMPPoKUErlk1DHUIvNY IuYBM3VjKjCQDfZLXxVQgmZOZaWDHoCCDiVSUiPALdAC3GQgJhAYBbUiHvFwYjZRFuNKNpct2KXYZaHH IbRALkEfOxWIUqMPBjUKfrESVmMDAoKGD3HJHcYJIaUN5PBbGuWJWhZgI5XFGkSSFiDWJqxx9BWJQgPC UwZzK7PkUpTTNuJRFwJTzmUVGxPNZfJNX7QDKzXHBs RR3TMlNyXJGqRkH2WHijEMFmOBRppn6CDTDrURUbHfb0UvUeTSYqCBSeHNkoUXBkJMU1TOR0DWRvBZDb OH1BQqPwMXOrToK4DOajVYVaAWJbxw1AHYKxZQUiEfC2ZNOhUWLnVBOyRSpmPNLcTTR4JHGnCMIeBENx KP9DJuIdPSNiEaViFNOkHHHqGPRdfx0BuXXxiEejan 5XVFdELn9VsZmaWVFjKCweUq5onMBqNTHiVNTBWn9HiaAnOYYkZXKAJQjdTDTzJHFdFuJ4WWX0JfNcKU ChORNhSCMjKhNhD6MyNDFhOcY1XzY1YYFbOtBjVpX3OUG6PcP3JdGfGnUbEdD4ZtOpAfCfQRZ+IF0gDQ o+Yl7Sx3WuvcL2ecFrSDgeZxX1TZ3ZIVNGM3UWIc== ID Date Data Source [id number] 02/05/2021 10:21:21 AM EDT [facility] MR EXTREMITY LOWER JOINT WITHOUT CONTRAS T [id number] RESULTInterpreted by:Gary Abel Morrell WATSONJULIA KNEE INDICATION: [...] rce(s) Supporting Document(s) ID Date Data Source [id number] 01/24/2021 05:49:34 AM EDT [facility] XR KNEE 4 OR MORE VIEWS [id number] RESUL TInterpreted by:PATRIA Collado KNEE AP STANDING [...] rce(s) Supporting Document(s) ID Date Data Source [id number] 01/22/2021 08:36:40 PM EDT [facility] XR SHOULDER COMPLETE [id number] RESULTIn terpreted by:PATRIA Collado SHOULDER CLINICAL STATEMENT: [...] rce(s) Supporting Document(s) ID Date Data Source [id number] 01/22/2021 02:55:20 PM T [facility] Name Value Range Interpretation Code Description Data Jane rce(s) Supporting Document(s) Progress Note [facility] TJKRWj4xGeLGZdRp83/VSYkjLUIrc1YlICpvGZu4VNodFMFgZ1FaLYN9kJ7aXLP1NKvFEbNyVvLcPFRp lbm [file] X2ZLI1Bui+AE0vQDz+Ry4Fs0XtoqB2ejEtLUs9FAY8VP0WCJVQB9KTFl== Procedure Social History Code Duration Value Status Description Data Source(s ) Alcohol intake 02/05/2021 12:00:00 AM EDT Not Asked completed [facility] Tobacco use and exposure 02/05/2021 12:00:00 AM EDT Never used co mpleted Never used [facility] Smoking 02/05/2021 12:00:00 AM EDT Never smoker completed Never s Health system Smoking 06/12/2020 12:00:00 AM EST Never Smoker completed Never S moker eCW1 ([facility]) Smoking 06/12/2020 12:00:00 AM EST Never Smoker completed Never S moker eCW1 ([facility]) Smoking 03/27/2020 12:00:00 AM EST Never Smoker completed Never S moker eCW1 ([facility]) Smoking 03/27/2020 12:00:00 AM EST Never Smoker completed Never S moker eCW1 ([facility]) Vital Signs ID Date Data Source UNK Name Value Range Interpretation Code Description Data Source(s) Body temperature 97.5 [degF] 97.5 [degF] eCW1 ( [facility]) Body weight 250 [lb_av] 250 [lb_av] [facility]CW[facility] Body height [in_i] eCW1 ([facility]) Body mass index (BMI) [Ratio] 38.01 kg/m2 38.01 kg/m2 eCW1 ([facility]) Heart rate 97 /min 97 /min eCW1 ([facility]) Respiratory rate 18 /min 18 /min eCW1 ([facility]) Systolic blood pressure 148 mm[Hg] 148 mm[Hg] e CW1 ([facility]) Diastolic blood pressure 86 mm[Hg] 86 mm[Hg] eCW1 ([facility]) Body weight 247 [lb_av] 247 [lb_av] eCW1 ([facility] Body height [in_i] eCW1 ([facility]) Body mass index (BMI) [Ratio] 37.55 kg/m2 37.55 kg/m2 eCW1 ([facility]) Heart rate 98 /min 98 /min eCW1 ([facility]) Respiratory rate 18 /min 18 /min eCW1 ([facility]) Body temperature 96.7 [degF] 96.7 [degF] eCW1 ( [facility]) Systolic blood pressure 136 mm[Hg] 136 mm[Hg] e CW1 ([facility]) Diastolic blood pressure 88 mm[Hg] 88 mm[Hg] eCW1 ([facility]) Patient Treatment Plan of Care Planned Activity Planned Date Details Description Data Source (s) montelukast 10 MG Oral Tablet 01/06/2021 12:00:00 AM [facility] cetirizine hydrochloride 10 MG Oral Tablet 01/06/2021 12:00:00 AM [facility]
[2021-03-20 02:09] LABS: BASO # 0.1 10^3/uL (0.0-0.2); BASO % 0.6 % (0.0-1.0); EOS # 0.2 10^3/uL (0.0-0.5); EOS % 1.3 % (0.0-3.0); HEMATOCRIT 49.2 % (42.0-52.0); HEMOGLOBIN 16.5 g/dl (13.5-17.5); LYMPH # 2.3 10^3/uL (1.5-5.0); LYMPH % 19.9 % (24.0-44.0); MEAN CORPUSCULAR HGB CONC 33.5 g/dl (32.0-36.5); MEAN CORPUSCULAR VOLUME 86.5 fl (80.0-96.0); MONO # 0.9 10^3/uL (0.0-0.8); MONO % 7.3 % (2.0-8.0); NEUTROPHILS # 8.3 10^3/uL (1.5-8.5); NEUTROPHILS % 70.4 % (36.0-66.0); PLATELET COUNT, AUTOMATED 307 10^3/uL (150-450); RED BLOOD COUNT 5.69 10^6/uL (4.30-6.10); WHITE BLOOD COUNT 11.8 10^3/uL (4.0-10.0)
[2021-03-20 02:34] LABS: CALCIUM LEVEL 9.2 MG/DL (8.5-10.1); CREATININE FOR GFR 1.46 MG/DL (0.70-1.30); GLOMERULAR FILTRATION RATE 58.8 (>60); POTASSIUM SERUM 3.7 MEQ/L (3.5-5.1)
--- NOTE | 2021-03-20 03:00 | REPVR ---
PROCEDURE INFORMATION: Exam: CT Abdomen And Pelvis Without Contrast Exam date and time: 03/20/2021 1:26 AM Age: 36 years old Clinical indication: Abdominal pain; Flank; Right; Additional info: Nephrolithiasis TECHNIQUE: Imaging protocol: Computed tomography of the abdomen and pelvis without contrast. Radiation optimization: All CT scans at this facility use at least one of these dose optimization techniques: automated exposure control; mA and/or kV adjustment per patient size (includes targeted exams where dose is matched to clinical indication); or iterative reconstruction. COMPARISON: CT ABD PELVIS W/O CONTRAST 01/30/2019 7:59 PM FINDINGS: Lungs: Linear atelectasis or scarring in the right middle and left lower lobes. Liver: Normal. No mass. Gallbladder and bile ducts: Normal. No calcified stones. No ductal dilation. Pancreas: Normal. No ductal dilation. Spleen: Several left quadrant splenules. Adrenal glands: Normal. No mass. Kidneys and ureters: Mild right hydroureteronephrosis to the level of a 3 mm calculus in the distal right ureter. Nonobstructive right nephrolithiasis. Right perinephric fat stranding. Stomach and bowel: Diverticulosis of colon. No evidence of acute diverticulitis. Appendix: No evidence of appendicitis. Intraperitoneal space: Unremarkable. No free air. No significant fluid collection. Vasculature: Unremarkable. No abdominal aortic aneurysm. Lymph nodes: Unremarkable. No enlarged lymph nodes. Urinary bladder: Unremarkable as visualized. Reproductive: Unremarkable as visualized. Bones/joints: Unremarkable. No acute fracture. Soft tissues: Fat containing umbilical hernia. IMPRESSION: Mild right hydroureteronephrosis to the level of a 3 mm calculus in the distal right ureter. Electronically signed by: Peter Stephens On 03/20/2021 02:59:54 AM
[2021-03-20] MEDS ORDERED: NS 1,000 ML IV ONE (03:25)
[2021-03-20] MEDS ORDERED: KETO10TAB PO (03:31)
[2021-03-20] MEDS ORDERED: FLOM0.4C39 PO (03:31)
[2021-03-20 04:44] VITALS: BP 132/84
== END 2021-03-20 04:46 | disposition home or self-care (01) ==
LOC: M ED 23:55
DX: N20.1 Calculus of ureter (principal); N13.30 Unspecified hydronephrosis; N13.4 Hydroureter; Z79.899 Other long term (current) drug therapy; Z87.442 Personal history of urinary calculi; Z84.1 Family history of disorders of kidney and ureter
CPT/HCPCS: 74176; 80048; 81001; 85025; 96374; 99283; J1885

== ENCOUNTER → 2022-01-18 | Outpatient (REF) | payer OTHER, BC ==
[~2022-01-18] MED LIST changes: -MONT10TA10; +MONT10TA97
[2022-01-18 16:57] LABS: BASO # 0.1 10^3/uL (0.0-0.2); BASO % 0.7 % (0.0-1.0); EOS # 0.4 10^3/uL (0.0-0.5); EOS % 4.5 % (0.0-3.0); HEMATOCRIT 52.3 % (42.0-52.0); HEMOGLOBIN 17.2 g/dl (13.5-17.5); LYMPH # 2.4 10^3/uL (1.5-5.0); LYMPH % 29.7 % (24.0-44.0); MEAN CORPUSCULAR HEMOGLOBIN 29.7 pg (27.0-33.0); MEAN CORPUSCULAR HGB CONC 32.9 g/dl (32.0-36.5); MEAN CORPUSCULAR VOLUME 90.2 fl (80.0-96.0); MONO # 0.6 10^3/uL (0.0-0.8); NEUTROPHILS # 4.6 10^3/uL (1.5-8.5); NEUTROPHILS % 57.6 % (36.0-66.0); PLATELET COUNT, AUTOMATED 284 10^3/uL (150-450)
[2022-01-18 17:23] LABS: HEMOGLOBIN A1c 5.4 %
[2022-01-18 17:39] LABS: ALBUMIN 4.4 GM/DL (3.2-5.2); ALT/SGPT 31 U/L (12-78); BILIRUBIN,TOTAL 0.4 MG/DL (0.2-1.0); BLOOD UREA NITROGEN 13 MG/DL (7-18); CARBON DIOXIDE LEVEL 26 MEQ/L (21-32); CHLORIDE LEVEL 106 MEQ/L (98-107); CHOLESTEROL LEVEL 207 MG/DL (<200); CHOLESTEROL RISK RATIO 5.914 (<5); GLOMERULAR FILTRATION RATE > 60.0 (>60); GLUCOSE, FASTING 104 MG/DL (70-100); HDL CHOLESTEROL 35 MG/DL (>40); LDL CHOLESTEROL 127 MG/DL (<100); NON-HDL-C 172 MG/DL; POTASSIUM SERUM 4.7 MEQ/L (3.5-5.1); SODIUM LEVEL 138 MEQ/L (136-145); TOTAL PROTEIN 7.3 GM/DL (6.4-8.2); TRIGLYCERIDES LEVEL 224 MG/DL (<150)
== END ==
LOC: M LABWUC 16:36
PROVIDERS: ATTEND Nurse Practitioner Family
DX: Z00.00 Encounter for general adult medical examination without abnormal findings (principal); E78.5 Hyperlipidemia, unspecified; Z13.1 Encounter for screening for diabetes mellitus

== ENCOUNTER → 2024-01-02 | Outpatient (REF) | payer BC ==
[~2024-01-02] MED LIST changes: +MONT-5 PO; -SING10TA32 PO
== END ==
LOC: M LAB REF 12:19
PROVIDERS: ATTEND Physician Assistant
DX: J02.9 Acute pharyngitis, unspecified (principal)

== ENCOUNTER → 2024-03-02 | Outpatient (CLI) | payer BC ==
[2024-03-02 13:26] LABS: ALKALINE PHOSPHATASE 104 U/L (46-116); ALT/SGPT 29 U/L (7.0-40); AST/SGOT 18 U/L (<34); BILIRUBIN,TOTAL 0.8 MG/DL (0.3-1.2); BLOOD UREA NITROGEN 12 MG/DL (9-23); CALCIUM LEVEL 9.7 MG/DL (8.5-10.1); CARBON DIOXIDE LEVEL 29 MMOL/L (20-31); CHLORIDE LEVEL 104 MMOL/L (98-107); CHOLESTEROL LEVEL 213 MG/DL (<200); CHOLESTEROL RISK RATIO 6.47 (<5); CREATININE FOR GFR 1.02 MG/DL (0.70-1.30); GLOMERULAR FILTRATION RATE > 60.0 (>60); GLUCOSE, FASTING 104 MG/DL (60-100); HDL CHOLESTEROL 32.9 MG/DL (>40); LDL CHOLESTEROL 117.1 MG/DL (<100); NON-HDL-C 180.1 MG/DL; SODIUM LEVEL 140 MMOL/L (136-145); TOTAL PROTEIN 7.1 G/DL (5.7-8.2); TRIGLYCERIDES LEVEL 315 MG/DL (<150)
[2024-03-02 13:27] LABS: BASO # 0.1 10^3/uL (0.0-0.2); EOS # 0.4 10^3/uL (0.0-0.5); EOS % 4.5 % (0.0-3.0); HEMATOCRIT 50.6 % (42.0-52.0); HEMOGLOBIN 16.7 g/dl (13.5-17.5); LYMPH # 2.8 10^3/uL (1.5-5.0); LYMPH % 33.9 % (24.0-44.0); MEAN CORPUSCULAR HEMOGLOBIN 29.2 pg (27.0-33.0); MEAN CORPUSCULAR VOLUME 88.6 fl (80.0-96.0); MONO # 0.7 10^3/uL (0.0-0.8); MONO % 8.5 % (2.0-8.0); NEUTROPHILS # 4.3 10^3/uL (1.5-8.5); NEUTROPHILS % 51.7 % (36.0-66.0); PLATELET COUNT, AUTOMATED 298 10^3/uL (150-450); RED BLOOD COUNT 5.71 10^6/uL (4.30-6.10); WHITE BLOOD COUNT 8.2 10^3/uL (4.0-10.0)
== END ==
LOC: M WUC 08:59
PROVIDERS: ATTEND Nurse Practitioner Family
DX: Z00.00 Encounter for general adult medical examination without abnormal findings (principal); E78.5 Hyperlipidemia, unspecified

== ENCOUNTER → 2025-03-03 | Outpatient (CLI) | payer BC ==
[~2025-03-03] MED LIST changes: -FLOM0.4C39 PO; +TAMS-18 PO
[2025-03-03 13:05] LABS: BASO # 0.1 10^3/uL (0.0-0.2); BASO % 0.8 % (0.0-1.0); EOS # 0.2 10^3/uL (0.0-0.5); EOS % 1.9 % (0.0-3.0); LYMPH # 1.9 10^3/uL (1.5-5.0); LYMPH % 22.4 % (24.0-44.0); MONO # 0.5 10^3/uL (0.0-0.8); MONO % 6.1 % (2.0-8.0); NEUTROPHILS # 5.8 10^3/uL (1.5-8.5); NEUTROPHILS % 68.4 % (36.0-66.0); PLATELET COUNT, AUTOMATED 293 10^3/uL (150-450)
[2025-03-03 13:31] LABS: ALT/SGPT 39 U/L (7.0-40); AST/SGOT 28 U/L (<34); CALCIUM LEVEL 9.3 MG/DL (8.5-10.1); CARBON DIOXIDE LEVEL 28 MMOL/L (20-31); CHLORIDE LEVEL 104 MMOL/L (98-107); CHOLESTEROL LEVEL 141 MG/DL (<200); CHOLESTEROL RISK RATIO 3.77 (<5); CREATININE FOR GFR 1.01 MG/DL (0.70-1.30); GLOMERULAR FILTRATION RATE > 90.0 (>60); LDL CHOLESTEROL 69.8 MG/DL (<100); NON-HDL-C 103.6 MG/DL; POTASSIUM SERUM 4.5 MMOL/L (3.5-5.1); SODIUM LEVEL 143 MMOL/L (136-145); TRIGLYCERIDES LEVEL 169 MG/DL (<150)
[2025-03-03 13:33] LABS: FREE T4 1.27 NG/DL (0.89-1.76)
== END ==
LOC: M LAB 12:06
PROVIDERS: ATTEND Nurse Practitioner Family
DX: Z00.00 Encounter for general adult medical examination without abnormal findings (principal); E78.5 Hyperlipidemia, unspecified; R53.83 Other fatigue

== ENCOUNTER → 2025-04-15 | Outpatient (CLI) | payer BC | LOC: M SOG 08:24 | PROVIDERS: ATTEND Physician Assistant | DX: M25.521 Pain in right elbow (principal); Z53.9 Procedure and treatment not carried out, unspecified reason ==